=== PATIENT | male | born 1960 | race Caucasian/White ===

== ENCOUNTER 2023-11-15 10:50 | Emergency (ER) | payer BC, SELFPAY ==
[2023-11-15 10:54] VITALS: BP 128/75; PULSE 50; RESP 18; TEMP 36.3; O2SAT 97; BMI 27.2
[2023-11-15 11:51] LABS: Basophils Absolute Auto 0.02 K/uL (0.00-0.30); Basophils Percent Auto 0.4 % (0.0-3.0); Eosinophils Absolute Auto 0.11 K/uL (0.00-0.50); Hematocrit 44.9 % (37.0-53.0); Hemoglobin* 14.6 gm/dL (13.5-17.5); Immature Granulocytes Abs Auto 0.01 K/uL (0.00-0.30); Immature Granulocytes Pct Auto 0.2 %; Lymphocytes Absolute Auto 1.63 K/uL (0.90-2.90); Lymphocytes Percent Auto 29.9 % (20-44); Mean Corpuscular HGB Conc 33 gm/dL (32-36); Mean Corpuscular Hemoglobin 30 pg (26-34); Mean Corpuscular Volume 91 fL (80-100); Monocytes Percent Auto 13.2 % (0.0-11.0); Neutrophils Absolute Auto 2.97 K/uL (1.7-7.0); Neutrophils Percent Auto 54.3 % (42.0-72.0); Platelet Count* 187 K/uL (140-440); RDW Coefficient of Variation % 13.3 % (11.5-15.5); Red Blood Count 4.94 m/uL (4.30-5.90); White Blood Count* 5.46 K/uL (4.50-11.00)
[2023-11-15 11:53] LABS: Slide Review Reflex No
[2023-11-15 12:06] LABS: Troponin, Point-of-Care* 0.01 ng/ml (0.01-0.04)
[2023-11-15 12:11] LABS: Chloride* 104 mmol/L (96-114); Sodium* 137 mmol/L (135-149)
[2023-11-15 12:12] LABS: Potassium* 4.2 mmol/L (3.6-5.1)
[2023-11-15 12:14] LABS: Anion Gap 7 mEq/L (7-15); Carbon Dioxide* 26 mmol/L (20-32); Creatinine* 0.9 mg/dL (0.5-1.5); Est. Creatinine Clearance* 82.62; Estimated Glomerular Filt Rate 97 ml/min
[2023-11-15 12:15] LABS: Blood Urea Nitrogen* 15 mg/dL (7-30); Glucose* 99 mg/dL (60-115)
[2023-11-15 12:16] VITALS: PULSE 50
--- NOTE | 2023-11-15 12:21 | ED_ITS ---
HPI - Arrhythmia/Palpitations General Chief Complaint: Arrhythmia/Palpitations Stated Complaint: irregular heartbeat Time Seen by Provider: 11/15/23 11:01 History of Present Illness HPI narrative: This 63-year-old male comes in reporting palpitations on and off over the past 10 days. He states that he does occasionally feel some lightheadedness but has not had any chest pain, shortness of breath, nausea, vomiting, or diaphoresis. He does not report any exercise intolerance. He does state that he has a 45 year history of smoking but quit last year. He does not have any other cardiac risk factors. Related Data Home Medications ?Medication ?Instructions ?Recorded ?Confirmed No Known Home Medications 11/15/23 11/15/23 Allergies Allergy/AdvReac Type Severity Reaction Status Date / Time No Known Drug Allergies Allergy Verified 11/15/23 10:57 Review of Systems Status of ROS: Reports: 10 or more systems reviewed and unremarkable except as noted in History and below Narrative: Constitutional: No fevers, no weight gain or loss. Eyes: No discharge. No vision changes. HENT: No congestion, no sore throat, no ear pain. Cardiovascular: No chest pain. Palpitations as described above. Respiratory: No shortness of breath, no wheezes, no cough. Gastrointestinal: No abdominal pain, no vomiting, no diarrhea. Genitourinary: No dysuria, no hematuria. Musculoskeletal: Normal range of motion. Skin: No rashes, no pruritis. Neurological: No dizziness, weakness, sensory change, speech change. Endo/Heme/Allergies: No bruising or bleeding. No polydipsia. Pysch: no suicidality, no anxiety, no insomnia. All other systems reviewed and are negative. PFSH PFS Social History Smoking Status: Former smoker How often do you have a drink containing alcohol: 2-3 times a week AUDIT-C Alcohol total score: 3 Non-prescribed substance use: denies use Exam Narrative: Exam Narrative: Constitutional: Well-developed, well-nourished, no acute distress. HEENT: Normocephalic, atraumatic. Neck: Normal range of motion. Nontender. Supple. Heart: Regular. No murmurs. Normal rate. Intact distal pulses. Lungs: Clear to auscultation. No chest discomfort. No wheezes, rhonchi, or rales. Abdomen: Normal bowel sounds. Nontender. No rebound tenderness. Genitalia: Deferred. Back: No midline tenderness. Normal range of motion. Extremities: Normal range of motion. No injury. Skin: Intact. No rash. Warm. No erythema or pallor. Neurologic: No altered sensation. No weakness. Alert and oriented. Psychiatric: No suicidality. No anxiety or depression. No insomnia. Nursing notes and vitals signs are reviewed. Const: Vital Signs, click to edit/add: Vital Signs - 24 hr 11/15/23 10:54 11/15/23 12:16 Temperature 97.3 F L Pulse Rate [Pulse Oximeter] 50 L 50 L Respiratory Rate 18 Blood Pressure [Ri t Upper Arm] 128/75 Pulse Oximetry 97 Oxygen Delivery Me thod Room Air Course Vital Signs Vital signs: Initial Vital Signs Temperature 97.3 F L 11/15/23 10:54 Temperature Source Temporal Artery Scan 11/15/23 10:54 Pulse Rate 50 L 11/15/23 10:54 Respiratory Rate 18 11/15/23 10:54 Blood Pressure 128/75 11/15/23 10:54 Blood Pressure Mean 92 11/15/23 10:54 Blood Pressure Position Supine 11/15/23 10:54 Pulse Oximetry 97 11/15/23 10:54 Oxygen Delivery Method Room Air 11/15/23 10:54 Vital Signs Temperature 97.3 F L 11/15/23 10:54 Pulse Rate 50 L 11/15/23 10:54 Respiratory Rate 18 11/15/23 10:54 Blood Pressure 128/75 11/15/23 10:54 Pulse Oximetry 97 11/15/23 10:54 Oxygen Delivery Method Room Air 11/15/23 10:54 Temperature 97.3 F L 11/15/23 10:54 Pulse Rate 50 L 11/15/23 12:16 Respiratory Rate 18 11/15/23 10:54 Blood Pressure 128/75 11/15/23 10:54 Pulse Oximetry 97 11/15/23 10:54 Oxygen Delivery Method Room Air 11/15/23 10:54 MDM - Arrhythmia/Palpitations MDM Narrative Medical decision making narrative: This patient is not feeling any palpitations currently. He was observed on the monitor an EKG is obtained. I did see 1 premature atrial contraction. Labs are acquired and these returned with reassuring findings. I did recommend a Zio patch monitor to better assess what heart rhythm he may be encountering. The patient considered this but declined it. I recommended then that he follow-up with his primary physician and also consider a stress test. Lab Data Labs: Lab Results 11/15/23 11/15/23 Range/Units 11:33 11:44 WBC 5.46 (4.50-11.00) K/uL RBC 4.94 (4.30-5.90) m/uL Hgb 14.6 (13.5-17.5) gm/dL Hct 44.9 (37.0-53.0) % MCV 91 (80-100) fL MCH 30 (26-34) pg MCHC 33 (32-36) gm/dL RDW Coeff of David 13.3 (11.5-15.5) % Plt Count 187 (140-440) K/uL Neut % (Auto) 54.3 (42.0-72.0) % Lymph % (Auto) 29.9 (20-44) % Vigo % (Auto) 13.2 H (0.0-11.0) % Eos % (Auto) 2.0 (0.0-7.0) % Baso % (Auto) 0.4 (0.0-3.0) % Neut # (Auto) 2.97 (1.7-7.0) K/uL Lymph # (Auto) 1.63 (0.90-2.90) K/uL Vigo # (Auto) 0.70 (0.00-0.90) K/UL Eos # (Auto) 0.11 (0.00-0.50) K/uL Baso # (Auto) 0.02 (0.00-0.30) K/uL Abs Immat Gran (auto) 0.01 (0.00-0.30) K/uL Imm/Tot Granulo (auto) 0.2 % Sodium 137 (135-149) mmol/L Potassium 4.2 (3.6-5.1) mmol/L Chloride 104 (96-114) mmol/L Carbon Dioxide 26 (20-32) mmol/L Anion Gap 7 (7-15) mEq/L BUN 15 (7-30) mg/dL Creatinine 0.9 (0.5-1.5) mg/dL Estimated Creat Clear 82.62 Estimated GFR 97 ml/min Glucose 99 (60-115) mg/dL Calcium 9.0 (8.4-10.6) mg/dL Magnesium 2.0 (1.5-2.6) mg/dL POC Troponin I 0.01 (0.01-0.04) ng/ml ECG Data Attestation: I personally reviewed and interpreted this ECG as follows: Interpretation: Normal sinus rhythm. Rate is 52 beats per minute. There are no ST or T-wave abnormalities. Discharge Plan Discharge Clinical Impression: Palpitations Patient Disposition: Home, Self-Care Condition: Stable Additional Instructions: Continue current plans. Follow up with primary physician or return if symptoms are recurrent or worsening. Prescriptions: No Action No Known Home Medications Follow Up/Referrals: Jonas Malone MD [Primary Care Provider] - Stand Alone Forms: [employer] Info Instructions
== END 2023-11-15 12:42 | disposition home or self-care (01) ==
PROVIDERS: Emergency Provider Emergency Medicine Emergency Medical Services; PCP Family Medicine
DX: R00.2 Palpitations (principal)
CPT/HCPCS: 36415; 80048; 83735; 84484; 85025; 93005; 99284

== ENCOUNTER 2024-06-15 06:28 | Outpatient (CLI) | payer BC, SELFPAY ==
--- NOTE | 2024-06-15 07:49 | P.ANES_ITS ---
Anesthesia Charges Start Date/Time Anesthesia Start Date: 06/15/24 Anesthesia Start Time: 07:21 Stop Date/Time Anesthesia Stop Date: 06/15/24 Anesthesia Stop Time: 07:45 Coding CPT Codes CPT Codes: ANES UPR GI NDSC PX NOS - 14240 ([id number]) P1 - NORMAL HEALTHY PATIENT, QX - DRIVER GUARD ZORAIDA W/ MED DIRECTION, QK - FIRE SPRINKLER FITTER 2-4 CNCRNT ANES PROC
--- NOTE | 2024-06-15 07:49 | W.ANESCHARGE ---
Anesthesia Charges Start Date/Time Anesthesia Start Date: 06/15/24 Anesthesia Start Time: 07:21 Stop Date/Time Anesthesia Stop Date: 06/15/24 Anesthesia Stop Time: 07:45 Coding CPT Codes CPT Codes: ANES UPR GI NDSC PX NOS - 49802 ([id number]) P1 - NORMAL HEALTHY PATIENT, QX - MANAGER CAMP ZORAIDA W/ MED DIRECTION, QK - FOUNTAIN OPERATOR 2-4 CNCRNT ANES PROC
--- NOTE | 2024-06-15 07:58 | P.ANES_ITS ---
Anesthesia Charges Start Date/Time Anesthesia Start Date: 06/15/24 Anesthesia Start Time: 07:21 Stop Date/Time Anesthesia Stop Date: 06/15/24 Anesthesia Stop Time: 07:45 Coding CPT Codes CPT Codes: ANES UPR GI NDSC PX NOS - 44995 ([id number]) P1 - NORMAL HEALTHY PATIENT, QK - HEALTH CARE SANITARY TECHNICIAN 2-4 CNCRNT ANES PROC, QX - REFUELING RAMP SUPERVISOR SVDionne W/ MED DIRECTION
--- NOTE | 2024-06-15 07:58 | W.ANESCHARGE ---
Anesthesia Charges Start Date/Time Anesthesia Start Date: 06/15/24 Anesthesia Start Time: 07:21 Stop Date/Time Anesthesia Stop Date: 06/15/24 Anesthesia Stop Time: 07:45 Coding CPT Codes CPT Codes: ANES UPR GI NDSC PX NOS - 28189 ([id number]) P1 - NORMAL HEALTHY PATIENT, QK - HEATER HELPER FORGE 2-4 CNCRNT ANES PROC, QX - ENGINEERING CONSULTANT SVDionne W/ MED DIRECTION
== END 2024-06-15 06:29 | disposition home or self-care (01) ==
LOC: OP CLINIC 06:30
PROVIDERS: PCP Family Medicine; Visit Provider Internal Medicine Gastroenterology
DX: R10.13 Epigastric pain (principal); K21.00 Gastro-esophageal reflux disease with esophagitis, without bleeding; K22.89 Other specified disease of esophagus; K31.89 Other diseases of stomach and duodenum
CPT/HCPCS: 00731; 43239; 88305; J2704; J3490

== ENCOUNTER 2024-08-09 13:55 | Outpatient (CLI) | payer BC, SELFPAY ==
--- OUTSIDE RECORDS SUMMARY | 2024-07-19 14:00 | XMS_ITS | Encounter Summary ---
Author Organization [facility] Address [address] [place] [address] Care Team Providers Care Atomic Physics Teacher Name Role Phone Unavailable Primary Care Provider Unavailabl e Reason for Visit * Reason Comments Rib Injury Left sided rib pain since early March 12 * Appointment Request (Routine) - Closed Specialty Diagnoses / Procedures Referred By Melany t Referred To Contact Family Medicine Referral ID Status Reason Start Date Expiration Date Visits Re quested Visits Authorized [id number] Closed 07/19/2024 10/19/2025 1 1 Encounter Details Date Type Department Care Team (Late st Contact Info) Description 07/19/2024 2:00 PM CDT Comprehensive Visit Department of Family Medicine, [facility], in [place], [place] [address] [place] [phone] Nancy Pollock APRN, C.N.P., D.N.P. [address] [phone] General Medical Examination Adult (Primary Dx); Intercostal Pain; Curvature Spine Social History Tobacco Use Types Packs/Day Years Used Date Smoking Tobacco: Every Day Cigarettes Cigars Smokeless Tobacco: Never Tobacco Cessation:Ready to Q uit: Not Asked; Counseling Given: Not Answered Alcohol Use Standard Drinks/Week Comments Yes 2 (1 standard drink = 0.6 oz pur e alcohol) occassional [facility] Utilities Answer Date Recorded In the past 12 months has e electric, gas, oil, or water company threatened to shut off services in your home? No 07/19/2024 Hunger Vital Sign Answer Date Recorded Within the past 12 months, y ou worried that your food would run out before you got the money to buy more. Never true 07/20/19 25 Within the past 12 months, t he food you bought just didn't last and you didn't have money to get more. Never true 07/19/2024 PRAPARE - Transportation Answer Date Re corded In the past 12 months, has l ack of transportation kept you from medical appointments or from getting medications? No 04/2024 In the past 12 months, has l ack of transportation kept you from meetings, work, or from getting things needed for daily living? No 07/19/2024 Housing Stability Answer Date Recorded What is your living situation today? I have a [facility] place to live 07/19/2024 Sex and Gender Information Value Date Recorded Sex Assigned at Male 07/19/2024 1:46 PM CDT Legal Sex Male 11:06 AM CDT Gender Identity Male 07/19/2024 1:46 PM CDT Sexual Orientation Straight 07/19/2024 1: 46 PM CDT documented as of this encounter Last Filed Vital Signs Vital Sign Reading Time Taken Comments Blood Pressure 120/74 07/19/2024 1:52 PM CDT average Pulse 94 07/19/2024 1:52 PM CDT Temperature 35.7 C (96.3 F) 07/19/2024 1:52 PM CDT Respiratory Rate 16 07/19/2024 1:52 PM CDT Oxygen Saturation - - Inhaled Oxygen Concentration - - Weight 87.5 kg (192 lb 14.4 oz) 07/19/2024 1:52 PM CDT Height 179.7 cm (5' 10.75) 07/19/2024 1:52 PM CDT with shoes on Body Mass Index 27.1 07/19/2024 1:52 PM CDT documented in this encounter Progress Notes * Jay Jay-Nancy Hernandez APRN, C.N.P., D.N.P. - 07/19/2024 2:00 PM CDT DATE OF VISIT: 07/19/2024 SUBJECTIVE CHIEF COMPLAINT / REASON FOR VISIT Trace Castellanos is a 63 y.o. male who presents for evaluation of Rib Injury (Left sided rib pain sinceearly March 12). The patient verbally consented to an audio recording of their visit to assist with the completion of documentation. History of Present Illness Trace Castellanos is a 63 year old male who presents with left-sided rib pain. He is new to [facility]. He has never establish care with the [place] [facility] previously and there some records needing release of information to be transferred over. He reports he has been experiencing constant left lower-sided rib pain since February, which sometimes worsens. The pain occurs both at rest and during physical activity. He previously works as a armed guard and retired a month ago. No injuries or accidents explain the onset of the pain. Per records March 17, 2024 visit differentials included costochondritis, pleurisy, reflux or gastritis. EKG obtained to rule out ischemic process and was within normal limit, chest x-ray was also normal. Multiple evaluations, 06/21/2024 CT of abdomen and pelvis within normal limit, lung screening CT, and chest x-ray within normal limit. He has undergone an upper endoscopy and colonoscopy, has an upcoming appointment with the [facility]. The pain can be reproduced by touching the affected area. In addition Trace notes a change in posture with a concave area and a bulge on the left side, noticed two weeks ago. He uses a pillow under his right side while sleeping due to discomfort. He denies history of scoliosis, kyphosis, lordosis or any spine issues. He has a history of tobacco use but quit a couple months ago. He worked as a armed guard, which involved moderate physical activity but not heavy lifting. Retired a month ago. The pain does not worsen with stretching exercises. He experiences bowel irregularity, including constipation, which he associates with left-sided abdominal discomfort. He has experienced intermittent heartburn, which he distinguishes from his currentrib pain. OBJECTIVE VITAL SIGNS BP 120/74 (BP Location: Left arm, Patient Position: Sitting, Cuff Size: Regular) Comment: average Comment (Cuff Size): long Pulse 94 Temp (!) 35.7 ??C (Temporal) Resp 16 Ht 179.7 cm Comment: with shoes on Wt 87.5 kg BMI 27.10 kg/m?? Physical Exam Constitutional Appearance: Normal appearance. Cardiovascular Rate and Rhythm: Normal rate and regular rhythm. Pulmonary Effort: Pulmonary effort is normal. Breath sounds: Normal breath sounds. Musculoskeletal Lumbar back: Scoliosis present. Neurological Mental Status: He is alert. ASSESSMENT/ PLAN General Medical Examination Adult Intercostal Pain Patient presents for evaluation of ongoing abdominal pain however the pain is not in the abdominal region but in the lower left rib pain since February. He reports also noticing a spinal curvature 2 weeks ago. He states he has been seen multiple times but has not been assessed/full visual of spine with shirt off- even though he states spinal curvature 1st noted 2 weeks ago. Upon physical examination patient reports tenderness with palpation of left lower rib 10-11th rib. Suspect intercostal muscle strain. Also noted is curving of the spine to the right-levoscoliosis?. Patient denies history of spinal injury or history of scoliosis. - Consider refer to orthopedic provider for further evaluation. - Review imaging and previous notes once available. - Patient okay to try meloxicam for intercostal discomfort, to take with food and avoid use of any other NSAIDs while taking meloxicam. We will check a BMP and CBC prior to sending prescriptions - We will get an x-ray of spine-? Scoliosis Orders: Basic Metabolic Panel; Future CBC with Differential, Blood; Future meloxicam (Mobic) 15 mg tablet; Take 1 tablet (15 mg total) by mouth daily for 10 days. All questions answered and patient voiced understanding and agreed with the plan. documented in this encounter Plan of Treatment Not on file documented as of this encounter Results * (ABNORMAL) CBC with Differential, Blood (07/19/2024 2:59 PM CDT) Hemoglobin 13.8 13.2 - 16.6 g/dL 07/19/2024 5:50 PM CDT [facility] Hematocrit 42.4 38.3 - 48.6 % 07/19/2024 5:50 PM CDT [facility] Erythrocytes 4.62 4.35 - 5.65 x10(12)/L 07/19/2024 5:50 PM CDT [facility] MCV 91.8 78.2 - 97.9 fL 07/19/2024 5:50 PM CDT [facility] RBC Distrib Width 13.3 11.8 - 14.5 % 07/19/2024 5:50 PM CDT [facility] Platelet Count 278 135 - 317 x10(9)/L 07/19/2024 5:50 PM CDT [facility] Leukocytes 9.3 3.4 - 9.6 x10(9)/L 07/19/2024 5:50 PM CDT [facility] Neutrophils 5.99 1.56 - 6.45 x10(9)/L 07/19/2024 5:50 PM CDT [facility] Lymphocytes 2.18 0.95 - 3.07 x10(9)/L 07/19/2024 5:50 PM CDT [facility] Monocytes 0.97(H) 0.26 - 0.81 x10(9)/L 07/19/2024 5:50 PM CDT [facility] Eosinophils 0.12 0.03 - 0.48 x10(9)/L 07/19/2024 5:50 PM CDT [facility] Basophils 0.04 0.01 - 0.08 x10(9)/L 07/19/2024 5:50 PM CDT [facility] Blood (Blood, Venous) 07/19/2024 2:59 PM CDT 07/19/2024 5:45 PM CDT us Nancy Pollock APRN, C.N.P., D.N.P. LA B BLOOD ADD-ON Final Result [facility] [address] [place] [address], [facility] [place] [address] [place] [address] * Basic Metabolic Panel (07/19/2024 2:59 PM CDT) Potassium, P 4.4 3.6 - 5.2 mmol/L 07/19/2024 6:09 PM CDT [facility] Sodium, P 139 135 - 145 mmol/L 07/19/2024 6:09 PM CDT [facility] Chloride, P 103 98 - 107 mmol/L 07/19/2024 6:09 PM CDT [facility] Bicarbonate, P 28 22 - 29 mmol/L 07/19/2024 6:10 PM CDT [facility] Anion Gap, P 8 7 - 15 07/19/2024 6:10 PM CDT [facility] BUN (Blood Urea Nitrogen), P 20 8 - 24 mg/dL 07/19/2024 6:10 PM CDT [facility] Creatinine 1.05 0.74 - 1.35 mg/dL 07/19/2024 6:10 PM CDT [facility] Estimated GFR (eGFR) 81 >=60 mL/min/BSA 07/19/2024 6:10 PM CDT [facility]AT Comment: Estimated GFR calculated using the 2020 CKD_EPI creatinine equation. Calcium, Total, P 9.5 8.8 - 10.2 mg/dL 07/19/2024 6:10 PM CDT [facility] Glucose, P 118 70 - 140 mg/dL 07/19/2024 6:10 PM CDT [facility] Blood (Blood, Venous) 07/19/2024 2:59 PM CDT 07/19/2024 5:46 PM CDT us Nancy Pollock APRN, C.N.P., D.N.P. LA B BLOOD ADD-ON Final Result [facility] [address] [place] [address], [place] [facility] [place] [address] [place] [address] documented in this encounter Visit Diagnoses Diagnosis General Medical Examination Adult- Primary Intercostal Pain Curvature Spine documented in this encounter
--- OUTSIDE RECORDS SUMMARY | 2024-07-19 14:47 | XMS_ITS | Encounter Summary ---
Author Organization [facility] Address [address] [place] [address] Care Team Providers Care Cpr Instructor Name Role Phone Unavailable [facility] Encounter Details Date Type Department Care Team (Late st Contact Info) Description 07/19/2024 2:47 PM CDT - 07/19/2024 11:59 PM CDT Hospital Encounter Department of Laboratory Medicine in [place] [address] [place] [phone] Jay JayNancy Hernandez APRN, C.N.P., D.N.P. [address] [phone] General Medical Examination Adult Discharge Disposition: Home or Self Care Social History Tobacco Use Types Packs/Day Years Used Date Smoking Tobacco: Every Day Cigarettes Cigars Smokeless Tobacco: Never Alcohol Use Standard Drinks/Week Comments Yes 2 (1 standard drink = 0.6 oz pur e alcohol) occassional [facility] Utilities Answer Date Recorded In the past 12 months has th e [employer], gas, oil, or water [employer] threatened to shut off services in your [...] your living situation today? I have a [facility] place to live 07/19/2024 Sex and Gender Information Value Date Recorded Sex Assigned at Male 07/19/2024 1:46 PM CDT Legal Sex Male 11:06 AM CDT Gender Identity Male 07/19/2024 1:46 PM CDT Sexual Orientation Straight 07/19/2024 1: 46 PM CDT documented as of this encounter Medications at Time of Discharge meloxicam (Mobic) 15 mg tabletIndications :Intercostal Pain Take 1 tablet (15 mg total) by mouth daily for 10 days. 10 tablet 2024 omeprazole (PriLOSEC) [address] capsule daily before morning meal. 06/23/2024 polyethylene glycol (Miralax) 17 gram/dose oral powder Take 17 g by mouth daily. Dissolve each 17 g dose in 240 mL (8 ounces) of beverage. documented as of this encounter Plan of Treatment Not on file documented as of this encounter Procedures Procedure Name Priority Date/Time Associated Diagnosis Comments CBC WITH DIFFERENTIAL, B Routine 07/19/2024 2:59 PM CDT General Medical Examination Adult BASIC METABOLIC PANEL, S/P Routine 07/19/2024 2:59 PM CDT General Medical Examination Adult documented in this encounter Results * (ABNORMAL) CBC with [...] D.N.P. LA B BLOOD ADD-ON Final Result [facility] [address] [place] [address], [facility] [place] [address] [place] [address] * Basic Metabolic Panel (07/19/2024 2:59 PM [...] D.N.P. LA B BLOOD ADD-ON Final Result [facility] [address], [place] [address], [facility] [place] [address] [place] [address] documented in this encounter Visit Diagnoses Diagnosis General Medical Examination Adult documented in this encounter
--- OUTSIDE RECORDS SUMMARY | 2024-07-29 12:55 | XMS_ITS | Encounter Summary ---
Author Organization [facility] Address [address] [place] [address] Care Team Providers Care Electrical Engineering Technician Name Role Phone Unavailable Primary Care Provider Unavailabl e Reason for Visit * Outpatient (Routine) - Closed Specialty Diagnoses / Procedures Referred By Melany cornejo Referred To Contact Diagnoses Curvature Spine Procedures DX Entire Spine Scoliosis 1 View DX Thoracolumbar Spine Scoliosis Anterior Posterior 1 View Nancy Pollock APRN, C.N.P., D.N.P. [address] [phone] Phone: tel: fax: [facility] Region Referral ID Status Reason Start Date Expiration Date Visits Re quested Visits Authorized [id number] Closed 2024 10/20/2025 1 1 Encounter Details Date Type Department Care Team (Late st Contact Info) Description 07/29/2024 12:55 PM CDT - 07/29/2024 11:59 PM CDT Hospital Encounter Department of Radiology in [place], [place] [address] [place] [phone] Nancy Pollock APRN, C.N.P., D.N.P. [address] [place] [phone] Curvature Spine Discharge Disposition: Home or Self Care Social History Tobacco Use Types Packs/Day Years Used Date Smoking Tobacco: Every Day Cigarettes Cigars Smokeless Tobacco: Never Alcohol Use Standard Drinks/Week Comments Yes 2 (1 standard drink = 0.6 oz pur e alcohol) occassional [facility] Utilities Answer Date Recorded In the [...] your living situation today? I have a [facility] place to live 07/19/2024 Sex and Gender [...]
[2024-08-09 13:59] VITALS: BP 110/80; PULSE 97; RESP 16; O2SAT 97
--- OUTSIDE RECORDS SUMMARY | 2024-08-09 14:32 | XMS_ITS | Clinical Summary ---
Author Organization [facility] Address [address] [place] [address] Care Team Providers Care Pediatric Registered Nurse Name Role Phone Unavailable Primary Care Provider Unavailabl e Source Comments Patient records contain information from all sites at [facility]. For routine questions regarding patient records, call [phone] during business hours, M-F 8:00 AM - 5:00 PM Central Time. Record requests for emergency care only can be directed to [phone] at any time.[facility] Allergies No known active allergies Medications omeprazole (PriLOSEC) [address] capsule daily before morning meal. 06/23/2024 Active polyethylene glycol (Miralax) 17 gram/dose oral powder Take 17 g by mouth daily. Dissolve each 17 g dose in 240 mL (8 ounces) of beverage. Active meloxicam (Mobic) 15 mg tabletIndicatio ns:Intercostal Pain Take 1 tablet (15 mg total) by mouth daily for 10 days. 10 tablet 2024 Active Encounters Date Type Department Care Team Description 07/29/2024 12:55 PM CDT - 07/29/2024 11:59 PM CDT Hospital Encounter Department of Radiology in [place], [place] [address] [place] [phone] Jay JayNancy Hernandez APRN, C.N.P., D.N.P. Curvature Spine Discharge Disposition: Home or Self Care 2024 Results Follow-Up Department of Family Medicine, [facility], in [place], [place] [address] [place] [address] Nancy Pollock APRN, C.N.P., D.N.P. Basic Metabolic Panel, CBC with Differential, Blood 2024 Clinical Communication Department of [facility], [facility], in [address] [phone] Nancy Pollock APRN, C.N.P., D.N.P. Follow-up 07/19/2024 2:47 PM CDT - 07/19/2024 11:59 PM CDT Hospital Encounter Department of Laboratory Medicine in [address] [place] [address] Nancy Pollock APRN, C.N.P., D.N.P. General Medical Examination Adult Discharge Disposition: Home or Self Care 07/19/2024 2:00 PM CDT Comprehensive Visit Department of [facility], [facility], in [address] [phone] Nancy Pollock APRN, C.N.P., D.N.P. General Medical Examination Adult (Primary Dx); Intercostal Pain; Curvature Spine from Last 3 Months Immunizations Immunization Administration Dates Next Due HepA / HepB 02/21/2008 Influenza, Injectable, Mdck, Preservative Free, Quadrivalent 01/03/2024,12/25/2022,11/27/2021,2020 Measles 06/25/1976 RZV (SHINGRIX) 06/18/2023,01/27/2023 SARS-COV-2 (COVID-19) - MODERNA(Discontinued) 12/24/2020,03/13/2020 Tdap 05/03/2024,07/05/2013 influenza vaccine quad (FLUZONE/FLUARIX) (6 months and older)(PF) 11/07/2019,01/24/2019,10/28/2017 Social History Tobacco Use Types Packs/Day Years Used Date Smoking Tobacco: Every Day Cigarettes Cigars Smokeless Tobacco: Never Tobacco Cessation:Ready to Q uit: Not Asked; Counseling Given: Not Answered Alcohol Use Standard Drinks/Week Comments Yes 2 (1 standard drink = 0.6 oz pur e alcohol) occassional [facility] Utilities Answer Date Recorded In the past 12 months has th e electric, gas, oil, or water company [...] your living situation today? I have a [facility] place to live 07/19/2024 Sex and Gender Information Value Date Recorded Sex Assigned at Male 07/19/2024 1:46 PM CDT Legal Sex Male 11:06 AM CDT Gender Identity Male 07/19/2024 1:46 PM CDT Sexual Orientation Straight 07/19/2024 1: 46 PM CDT Last Filed Vital Signs Vital Sign Reading [...] Mass Index 27.1 07/19/2024 1:52 PM CDT Plan of Treatment Health Maintenance Due Date Last Done Comments CT Colonography 1962 Cologuard 1962 FIT 1962 HIV Screening 1962 Hepatitis C Screening 1962 Tobacco Cessation counseling 1962 Pneumococcal vaccine (50+ years) (1 of 2 - PCV) 1981 Hepatitis B Vaccines (2 of 3 - Hep B Twinrix 3-dose series) 03/20/2008 02/21/2008 Depression Screening (Annual PHQ-2) 02/17/2024 Fasting Glucose for Diabetes Screening 2027 07/19/2024, 05/03/2024, 01/27/2023, Additional history exists Lipid (Cholesterol) Screening 01/28/2028 01/27/2023, 06/25/2020 DTaP,Tdap,and Td Vaccines (3 - Td or Tdap) 05/03/2034 05/03/2024, 07/05/2013 Colonoscopy 07/13/2034 07/13/2024 Colorectal Cancer Screening 07/13/2034 Zoster Vaccines Completed 06/18/2023, 01/27/2023 COVID-19 Vaccine Completed 01/03/2024, 10/2022, 11/27/2021, Additional history exists Influenza Vaccine Completed 01/03/2024, , 11/27/2021, Additional history exists IPV Vaccines Aged Out No longer eligi ble based on patient's age to complete this topic Procedures Procedure Name Priority Date/Time Associated Diagnosis Comments DX ENTIRE SPINE SCOLIOSIS 1 VIEW RAD - Routine (most inpatients and all outpatients) 07/29/2024 1:07 PM CDT Curvature Spine CBC WITH DIFFERENTIAL, B Routine 07/19/2024 2:59 PM CDT General Medical Examination Adult BASIC METABOLIC PANEL, S/P Routine 07/19/2024 2:59 PM CDT General Medical Examination Adult from Last 3 Months Results * DX Entire Spine Scoliosis 1 [...] D.N.P. IMG DIAGNOSTIC IMAGING PROCEDURES Final Result * (ABNORMAL) CBC with Differential, Blood (07/19/2024 [...] 2:59 PM CDT 07/19/2024 5:45 PM CDT Nancy Pollock APRN, C.N.P., D.N.P. LA B BLOOD ADD-ON Final Result [facility] [address] [place] [id number], [place] [employer] [facility] in [place] [address] [place] [id number] * Basic Metabolic Panel (07/19/2024 2:59 PM [...] D.N.P. LA B BLOOD ADD-ON Final Result [facility] [address] [place] [address], [place] [employer] [facility] in [place] [address] [place] [phone] from Last 3 Months Insurance [facility]
--- OUTSIDE RECORDS SUMMARY | 2024-08-09 14:32 | XMS_ITS | Encounter Summary ---
Author Organization [facility] Address [address] [place] [address] Care Team Providers Care Collar Baster Name Role Phone Unavailable Primary Care Provider Unavailabl e Encounter Details Date Type Department Care Team (Late st Contact Info) Description 2024 Results Follow-Up Department of Family Medicine, [facility], in [place], [place] [address] [place] [address] Jay JayNancy Hernandez APRN, C.N.P., D.N.P. [address] [phone] Basic Metabolic Panel, CBC with Differential, Blood Social History Tobacco Use Types Packs/Day Years Used Date Smoking Tobacco: Every Day Cigarettes Cigars Smokeless Tobacco: Never Alcohol Use Standard Drinks/Week Comments Yes 2 (1 standard drink = 0.6 oz pur e alcohol) occassional [facility] Utilities Answer Date Recorded In the past 12 months has e [employer], gas, oil, or water [employer] threatened to shut off services in your [...] your living situation today? I have a [facility] place to live 07/19/2024 Sex and Gender Information Value Date Recorded Sex Assigned at Male 07/19/2024 1:46 PM CDT Legal Sex Male 11:06 AM CDT Gender Identity Male 07/19/2024 1:46 PM CDT Sexual Orientation Straight 07/19/2024 1: 46 PM CDT documented as of this encounter Plan of Treatment Not on file documented as of this encounter Visit Diagnoses Not on filedocumented in this encounter
--- OUTSIDE RECORDS SUMMARY | 2024-08-09 14:32 | XMS_ITS | Clinical Summary ---
Author Organization [employer] [facility] Address [address] [place] [id number] Care Team Providers Care Concrete Block Mason Name Role Phone Anne Rueda DO Primary Care Provider Allergies No known active allergies Medications cyclobenzaprine 10 mg tabletIndication s:Postprandial epigastric pain,Abdominal pain, LUQ (left upper quadrant) Take 1 Tablet (10 mg) by mouth at bedtime if needed for Muscle Spasm. 30 Tablet 5 Active Additional Information Patient not taking.Reported on 08/08/2024 durable medical equipment (DME)Indications :Resorption atelectasis without respiratory distress syndrome (HC) Incentive spirometer 1 Each 5 Active omeprazole 20 mg Delayed-Release capsule 5 Active polyethylene glycoL 17 gram/scoop powderIndication s:Abdominal pain, epigastric,Chron ic constipation Mix 1 scoop (17 g) in liquid then take by mouth once daily. 1700 g 1 5 Active sennosides 8.6 mg tabletIndication s:Chronic constipation Take 1 Tablet (8.6 mg) by mouth two times daily. 180 Tablet 3 5 Active Additional Information Patient not taking.Reported on 08/08/2024 polyethylene glycol-electroly te 236-22.74-6.74 -5.86 gram suspensionIndica tions:Change in stool caliber Drink 2 liters (half the bottle) the day before the procedure and 2 liters (half the bottle) 6 hours prior to procedure. 4000 mL 5 Active Additional Information Patient not taking.Reported on 08/08/2024 Active Problems Problem Noted Date Diagnosed Date Prediabetes 03/17/2024 Mixed hyperlipidemia 03/17/2024 Tobacco dependence 06/25/2020 Routine adult health maintenance 08/24/2015 Overview (08/24/2015): Colonoscopy 08/2015 normal repeat in 10 years Urinary frequency 09/23/2013 Encounters Date Type Department Care Team Description 08/09/2024 [facility]phone [facility] [place] [address] Salazar Ricardo MD FYI 08/08/2024 7:50 AM CDT [facility] [address] [facility] [place] [address] Salazar Ricardo MD Musculoskeletal Problem (Consultation for LEFT Rib pain. DOO 02/2024) 08/08/2024 Travel 07/14/2024 Orders Only [facility] [address] [facility] [place] [address] Anne Rueda DO 1 scan: (1-Ord) [facility] 07/13/2024 11:49 AM CDT - 07/13/2024 11:59 PM CDT Hospital Encounter Edward Sandoval MD 07/13/2024 Lab Requisition [facility] [phone] Edward Sandoval MD 07/13/2024 Orders Only [address] [address] Edward Sandoval MD <No scans attached> 07/13/2024 Surgery [facility] [id number] [place] [address] [address] [place] [address] Edward Sandoval MD Colonoscopy 07/07/2024 7:40 AM CDT Office Visit [facility] [address] [place] [address] Anne Rueda DO Abdominal Pain (Just received the SIBO testing to his house yesterday - plans to take today - stopped taking the omeprazole - used miralax 4 times a day for 30 doses and stopped - hasn't had a BM since Thursday - thinks that while using he maybe had BM every other day but very irregular stools ) 07/07/2024 Telephone [facility] [address] [facility] [place] [address] Edward Sandoval MD colonoscopy RX / Case request 07/07/2024 Travel 06/21/2024 2:30 PM CDT Ancillary Procedure [facility] [address] [place] [address] 06/21/2024 12:25 PM CDT Office Visit [facility] [address] [place] [address] Anne Rueda DO Abdominal Pain/problem (Feels like his digestion is all messed up since being on the prilosec /Feels like if he doesn't eat he does not have the rib pain ) 06/21/2024 Travel 06/16/2024 Lab Requisition [facility] [phone] Edward Sandoval MD 06/15/2024 6:30 AM CDT Procedure Only [facility] [address] [place] [address] Edward Sandoval MD 05/24/2024 8:55 AM CDT Office Visit [facility] [address] [place] [address] Anne Rueda DO Pain (Following up on abdominal / rib pain - LEFT sided ) 05/24/2024 Telephone [facility] [address] [place] [address] Edward Sandoval MD Endoscopy 05/24/2024 Travel 05/10/2024 8:00 AM CDT Ancillary Procedure [address] [address] 05/10/2024 Travel from Last 3 Months Immunizations Immunization Administration Dates Next Due COVID-19 vaccine (Moderna 10 0mcg/0.5mL) CHASTITY ALMAGUER 12/24/2020,03/13/2020,02/16/2020 HepA-HepB (Twinrix) 02/21/2008 Influenza, CCIIV3 (Age >=6 MO) (Egg Free) 2023 Influenza, IIV4 11/07/2019,01/24/2019,10/28/2017 Influenza,CCIIV4 PRESERV FREE 12/25/2022, 022,02/12/2021 Measles 06/25/1976 Tdap 05/03/2024,07/05/2013 Zoster (Shingrix-RZV, recombinant) 06/18/2023,03/24/2023 Family History Medical History Relation Name Comments Dementia Father Good Health Mother Thyroid Disease Sister Relation Name Status Comments Father (Age 87) Dementia Mother Alive Sister Alive Social History Tobacco Use Types Packs/Day Years Used Date Smoking Tobacco: Former Cigarettes 1 44.4 0 07/17/1976 - 11/23/2020 Smokeless Tobacco: Never Tobacco Cessation:Counseling Given: Yes Alcohol Use Standard Drinks/Week Comments Yes 0 (1 standard drink = 0.6 oz pur e alcohol) occassional PHQ-2 Answer Date Recorded PHQ-2 TOTAL SCORE 1 05/03/2024 Social Connections Answer Date Recorded Do you often feel lonely or isolated from those around you? 0 11/25/2023 Financial Resource Strain Answer Date R ecorded Difficulty of Paying Living Expenses 3 11/25/2023 Difficulty of Paying Living Expenses Not on file 11/25/2023 Food Insecurity Answer Date Recorded Do you worry your food will run out before you are able to buy more? 1 11/25/2023 Transportation Needs Answer Date Record ed Does lack of transportation keep you from medica l appointments? 1 11/25/2023 Does lack of transportation keep you from work, meetings or getting things that you need? 1 11/25/2023 Housing Stability Answer Date Recorded What is your housing situation today? 1 11/25/2023 Utilities Answer Date Recorded Do you have trouble paying f or utilities (for example, heat, electricity, water, phone)? 1 11/25/2023 Sex and Gender Information Value Date Recorded Sex Assigned at Not on file Legal Sex Male 5:24 AM RETAIL RECEIVING CLERK Gender Identity Not on file Sexual Orientation Not on file Obstetrics History Last Filed Vital Signs Vital Sign Reading Time Taken Comments Blood Pressure 157/87 08/08/2024 7:57 AM CDT recheck BP Pulse 84 08/08/2024 7:54 AM CDT Temperature 36 C (96.8 F) 02/21/2021 10:50 AM RETAIL RECEIVING CLERK Respiratory Rate 18 02/21/2021 11:3 0 AM RETAIL RECEIVING CLERK Oxygen Saturation 99% 08/08/2024 7:5 4 AM CDT Inhaled Oxygen Concentration - - Weight 85.7 kg (188 lb 14.4 oz) 025 7:54 AM CDT Height 178 cm (5' 10.08) 05/03/2024 7: 56 AM CDT Body Mass Index 27.04 05/03/2024 7:56 AM CDT Plan of Treatment Upcoming Encounters Date Type Department Care Team (Late st Contact Info) Description 08/11/2024 9:00 AM CDT Office Visit [facility] [address] [place] [address] Edward Sandoval MD [address] [place] [address] Health Maintenance Due Date Last Done Comments Hepatitis B series for 19+ ( 2 of 3 - Hep B Twinrix 3-dose series) 03/20/2008 02/21/2008 Pneumococcal series for age 50+ (1 of 1 - PCV) 2012 BMI (ht and wt on same day) for age 18+ 05/03/2025 05/03/2024, 01/27/2023, 12/24/2020, Additional history exists Depression screening for age 12+ 05/03/2025 05/03/2024, 01/27/2023, 06/26/2020, Additional history exists Low Dose CT (for lung CA) ag e 50-80 05/10/2025 05/10/2024 Lipids for age 45-75 05/03/2029 05/03/2024, 01/27/2023, 06/25/2020, Additional history exists Tetanus booster 05/03/2034 05/03/2024, 07/05/2013 Colonoscopy through age 75 07/13/203407/13, 08/24/2015, 08/24/2015 RSV vaccine for adults or (1 - 1-dose 75+ series) 2037 HIV for age 15-65 Completed 01/27/2023 Hepatitis C screening for ag e 18-79 Completed 01/27/2023 Zoster (shingles) series for age 50+ Completed 06/18/2023, 01/27/2023 COVID-19 vaccine series Completed 01/03/20, 12/25/2022, 11/27/2021, Additional history exists Influenza Vaccine Completed 01/03/2024, , 11/27/2021, Additional history exists Tdap Completed 05/03/2024, 07/05/2013 Procedures Procedure Name Priority Date/Time Associated Diagnosis Comments COMP METABOLIC PANEL Routine 08/08/2024 9:04 AM CDT Rib pain on left side Pleural effusion on left C-REACTIVE PROTEIN Routine 08/08/2024 9:04 AM CDT Rib pain on left side Pleural effusion on left LAB TRACKING EVENT Routine 07/13/2024 1:15 PM CDT PATH TISSUE EXAM Routine 07/13/2024 1:13 PM CDT COLONOSCOPY DIAGNOSTIC DIEGO 12:00 AM CDT Abnormal stool caliber AMB CONSULT TO GASTROENTEROLOGY [facility] 06/23/2024 8:13 PM CDT Postprandial epigastric pain Abdominal pain, LUQ (left upper quadrant) CT ABDOMEN PELVIS W [place] 06/21/2024 1:38 PM CDT Postprandial epigastric pain Abdominal pain, LUQ (left upper quadrant) LAB TRACKING EVENT Routine 06/15/2024 7:30 AM CDT PATH TISSUE EXAM Routine 06/15/2024 7:30 AM CDT ESOPHAGOGASTRODUODENOSCOPY Routine 06/15 12:00 AM CDT Postprandial epigastric pain CT CHEST SCREENING LOW DOSE WO CONTRAST Routine 05/10/2024 8:09 AM CDT Tobacco use LIPID PANEL W REFLEX MEASURE D LDL Routine 05/03/2024 8:36 AM CDT Mixed hyperlipidemia ANTI HIV 1/2 Routine 01/27/2023 10:36 AM RETAIL RECEIVING CLERK Screening for HIV (human immunodeficiency virus) ANTI HCV Routine 01/27/2023 10:36 AM RETAIL RECEIVING CLERK Need for hepatitis C screening test SURGICAL PROCEDURE (TYPE PROCEDURE DESCRIPTION BELOW) Change in stool caliber from Last 3 Months or Most Recently Relevant to Health Maintenance Results * C-REACTIVE PROTEIN (08/08/2024 9:04 AM CDT) C-REACTIVE PROTEIN 6.6 <8.0 mg/L [facility] Blood BLOOD SPECIMEN / Unknown 08/08/2024 9:04 AM CDT 08/08/2024 9:05 AM CDT us Salazar Ricardo MD CHEMISTRY Final Res ult [facility] [address] [place] [address], [facility] [address] [place] [address] * (ABNORMAL) COMP METABOLIC PANEL (08/08/2024 9:04 AM CDT) GLUCOSE 101(H) 65 - 99 mg/dL [facility] Comment: Fasting reference interval For someone without known diabetes, a glucose value between 100 and 125 mg/dL is consistent with prediabetes and should be confirmed with a follow-up test. UREA NITROGEN (BUN) 17 7 - 25 mg/dL [facility] CREATININE 0.98 0.70 - 1.35 mg/dL [facility] EGFR 87 > OR = 60 mL/min/1. 73m2 [facility] BUN/CREATININE RATIO SEE NOTE: 6 22 (calc) [facility] Comment: Not Reported: BUN and Creatinine are within reference range. SODIUM 139 135 - 146 mmol/L [facility] POTASSIUM 5.2 3.5 - 5.3 mmol/L [facility] CHLORIDE 103 98 - 110 mmol/L [facility] CARBON DIOXIDE 28 20 - 32 mmol/L [facility] CALCIUM 9.7 8.6 - 10.3 mg/dL [facility] PROTEIN, TOTAL 6.9 6.1 - 8.1 g/dL [facility] ALBUMIN 4.2 3.6 - 5.1 g/dL [facility] GLOBULIN 2.7 1.9 - 3.7 g/dL (calc) [facility] ALBUMIN/GLOBULIN RATIO 1.6 1.0 - 2.5 (calc) [facility] BILIRUBIN, TOTAL 0.4 0.2 - 1.2 mg/dL [facility] ALKALINE PHOSPHATASE 103 35 - 144 U/L [facility] AST 16 10 - 35 U/L [facility] ALT 14 9 - 46 U/L [facility] Blood BLOOD SPECIMEN / Unknown 08/08/2024 9:04 AM CDT 08/08/2024 9:05 AM CDT Salazar Ricardo MD CHEMISTRY Final Res ult [facility] [address] [place] [address], [facility] [address] [place] [address] * LAB TRACKING EVENT (07/13/2024 1:15 PM CDT) Only the most recent of2 resultswithin the time period is included. Other (Other) Client Collect / Unknown 07/13/2024 1:15 PM CDT 07/13/2024 6:12 PM CDT Edward Snadoval MD LAB BILL ONLY Final Res ult [facility] [address] [place] [id number], * PATH TISSUE EXAM (07/13/2024 1:13 PM CDT) Only the most recent of2 resultswithin the time period is included. Case Report Pathology Report Case: [id number] Authorizing Provider: Edward Sandoval MD Collected: 07/13/2024 1313 Ordering Location: [facility] Received: 07/13/2024 1815 Pathologist: De Rueda MD Specimen: Rectal Biopsy 07/14/2024 4:00 PM CDT [facility] Final Diagnosis A) RECTUM, POLYPECTOMY: 1. Hyperplastic polyp 07/14/2024 4:[address] [facility] at 1600 CDT Clinical Information Mr. Castellanos is a 63 y.o. who presents with a change in stool caliber and hematochezia. Patient's last colonoscopy in August 2015. 07/14/2024 4:00 PM CDT [facility] Gross Description A) Received in formalin is a mancilla mucosal fragment measuring 2 mm in greatest dimension, which is entirely submitted in one cassette. It is labeled with the patient's name and designated rectal polyp. Jaye Jason 07/13/2024 6:42 PM 07/14/2024 4:[address] [facility] Microscopic Description The final diagnosis is based on microscopic examination of appropriate sections of all specimens. 07/14/2024 4:00 PM CDT [facility] Additional Information Interpreted at [facility] - [address], [place] [address] 07/14/2024 4:[address] [facility] Other (Rectal Biopsy) 07/13/2024 1:13 PM CDT 07/13/2024 6:15 PM CDT us Edward Sandoval MD PATHOLOGY/CYTOLOGY Final Result [facility] [address] [place] [address], [place] * COLONOSCOPY DIAGNOSTIC (07/13/2024 12:00 AM CDT) us Anne Rueda DO GI PROCEDURE ORD Final Result * CT ABDOMEN PELVIS W (06/21/2024 1:38 PM CDT) Anatomical Region Laterality Modality Abdomen, Pelvis, AORTA, LIVER, SPLEEN Computed Tomography 06/21/2024 5:19 PM CDT Narrative 06/21/2024 5:19 PM CDT For Patients: As a result of the Century Cures Act, medical imaging exams and procedure reports are released immediately into your electronic medical record. You may view this report before your referring provider. If you have questions, please contact your health care provider. Indication: Abdominal pain, LUQ (left upper quadrant Postprandial epigastric pain Technique: CT ABDOMEN PELVIS W Omnipaque 350 100 ML intravenous contrast Please note that all CT scans at this facility use dose modulation, iterative reconstruction, and/or weight-based dosing when appropriate to reduce radiation dose to as low as reasonably achievable. Comparison: None Findings: Linear subsegmental atelectasis is present within the left lower lobe. Trace amount of pleural fluid noted on the left. Adrenal glands are normal. Spleen is not enlarged. No hydronephrosis or solid renal mass. No renal stone. Liver is normal. Normal gallbladder. The pancreas is within normal limits. No hiatal hernia. Atherosclerotic changes. No aneurysm. No adenopathy. The stomach is not obstructed. Normal pyloric mucosa noted. The duodenum appears normal. Moderate stool is present within the mid and distal colon. Normal appendix. No small bowel obstruction. No acute inflammatory change. Degenerative changes are present particularly at L2- 3. Impression: No suspicious findings are present. Please note that all CT scans at this facility use dose modulation, iterative reconstruction, and/or weight-based dosing when appropriate to reduce radiation dose to as low as reasonably achievable. Dictated by Jonas Jurado MD @ 06/21/2024 5:19:46 PM (Electronically Signed) Procedure Note Jonas Jurado MD - 06/21/2024 For Patients: As a result of the Century Cures Act, medical imagingexams and procedure reports are released immediately into your electronicmedical record. You may view this report before your referring provider.If you have questions, please contact your health care provider. Indication: Abdominal pain, LUQ (left upper quadrant Postprandial epigastric pain Technique: CT ABDOMEN PELVIS W Omnipaque 350 100 ML intravenous contrast Please note that all CT scans at this facility use dose modulation,iterative reconstruction, and/or weight-based dosing when appropriate toreduce radiation dose to as low as reasonably achievable. Comparison: None Findings: Linear subsegmental atelectasis is present within the left lower lobe.Trace amount of pleural fluid noted on the left. Adrenal glands arenormal. Spleen is not enlarged. No hydronephrosis or solid renal mass. Norenal stone. Liver is normal. Normal gallbladder. The pancreas is withinnormal limits. No hiatal hernia. Atherosclerotic changes. No aneurysm. Noadenopathy. The stomach is not obstructed. Normal pyloric mucosa noted.The duodenum appears normal. Moderate stool is present within the mid anddistal colon. Normal appendix. No small bowel obstruction. No acuteinflammatory change. Degenerative changes are present particularly atL2-3. Impression: No suspicious findings are present. Please note that all CT scans at this facility use dose modulation,iterative reconstruction, and/or weight-based dosing when appropriate toreduce radiation dose to as low as reasonably achievable. Dictated by Jonas Jurado MD @ 06/21/2024 5:19:46 PM (Electronically Signed) us Blancai Rickiera DO CT Final Result * ESOPHAGOGASTRODUODENOSCOPY (06/15/2024 12:00 AM CDT) us Adei Shaqra DO GI PROCEDURE ORD Final Result * CT CHEST SCREENING LOW DOSE WO CONTRAST (05/10/2024 8:09 AM CDT) Anatomical Region Laterality Modality Computed Tomogra phy Impressions 05/10/2024 7:55 PM CDT Small pulmonary nodules. Lung-RADS Category 2: Benign appearance or behavior. Continue annual screening with low-dose chest CT in 12 months. Please note that all CT scans at this facility use dose modulation, iterative reconstruction and/or weight-based dosing when appropriate to reduce radiation dose to as low as reasonably achievable. Dictated by: Tom Gannon MD @05/10/2024 8:51:21 AM/ildefonso Neuroradiologist Narrative 05/10/2024 7:55 PM CDT For Patients: As a result of the Cures Act, medical imaging exams and procedure reports are released immediately into your electronic medical record. You may view this report before your referring provider. If you have questions, please contact your health care provider. CT CHEST SCREENING LOW-DOSE WITHOUT CONTRAST, 05/10/2024 INDICATION: Lung cancer screening. TECHNIQUE: Low-dose noncontrast CT images of the chest. Dose reduction techniques used. COMPARISON: None. FINDINGS: Calcified granuloma right lower lobe. No focal consolidation, pleural effusion, or pneumothorax. Solid 2 mm nodule right lower lobe (series 5, image 112). Solid 3 mm nodule along the left major fissure (series 5, image 65). Mild centrilobular and paraseptal emphysema predominantly in the upper lobes. Mild atelectasis left lung base. Heart size is normal. No pericardial effusion. Coronary artery atherosclerotic calcifications. No mediastinal or hilar lymphadenopathy. Limited images through the upper abdomen are unremarkable. Multilevel thoracic spondylosis. No aggressive osseous lesions. us Adei Shaqra DO CT Final Result * (ABNORMAL) LIPID PANEL W REFLEX MEASURED LDL (05/03/2024 8:36 AM CDT) CHOLESTEROL, TOTAL 230(H) <200 mg/dL [facility] HDL CHOLESTEROL 42 > OR = 40 mg/dL [facility] TRIGLYCERIDES 159(H) <150 mg/dL [facility] LDL-CHOLESTEROL 159(H) mg/dL (calc) [facility] Comment: Reference range: <100 Desirable range <100 mg/dL for primary prevention; <70 mg/dL for patients with CHD or diabetic patients with > or = 2 CHD risk factors. LDL-C is now calculated using the Cade calculation, which is a validated novel method providing better accuracy than the Friedewald equation in the estimation of LDL-C. Edward HORNER et al. SHAAN. 2013;310(19): 8664-7314 (http://education.[employer]/faq/ZYX099) CHOL/HDLC RATIO 5.5(H) <5.0 (calc) [facility] NON HDL CHOLESTEROL 188(H) <130 mg/dL (calc) [facility] Comment: For patients with diabetes plus 1 major ASCVD risk factor, treating to a non-HDL-C goal of <100 mg/dL (LDL-C of <70 mg/dL) is considered a therapeutic option. Blood BLOOD SPECIMEN / Unknown 05/03/2024 8:36 AM CDT 05/03/2024 8:37 AM CDT Adei Jobpartnersqra DO CHEMISTRY Final Result Performing Organization Address City/[facility] Co de Phone Number [facility] [address] [place] [address], [place] [phone] [facility] [address] [place] [address] * ANTI HCV (01/27/2023 10:36 AM RETAIL RECEIVING CLERK) Pathologist [facility] ANTIBODY Non-Reacti ve Non-React zainab 01/27/2023 5:07 PM RETAIL RECEIVING CLERK [facility] Comment:Please note, per www .CDC.gov: If a patient is known to be at high risk of HCV infection, or is symptomatic, and the physician's suspicion of HCV infection is high, HCV RNA testing is often employed and is of diagnostic value, even after an initial negative anti-HCV test result. Blood BLOOD SPECIMEN / Unknown Venipuncture / Unknown 01/27/2023 10:36 AM RETAIL RECEIVING CLERK 01/27/2023 10:37 AM RETAIL RECEIVING CLERK Adei Jobpartnersqra DO SEND OUTS Final Result [facility] [address] [place] [address], [place] * ANTI HIV 1/2 [75701.0] (01/27/2023 10:36 AM RETAIL RECEIVING CLERK) HIV-1/HIV-2 SCREEN Non-Reacti ve Non-Reacti ve 01/27/2023 4:33 PM RETAIL RECEIVING CLERK [facility] Comment:HIV-1 p24 and HIV-1/ HIV-2 Ab Not Detected. Blood BLOOD SPECIMEN / Unknown Venipuncture / Unknown 01/27/2023 10:36 AM RETAIL RECEIVING CLERK 01/27/2023 10:37 AM RETAIL RECEIVING CLERK us Anne Rueda DO SEND OUTS Final Result [facility] [address] [place] [address], from Last 3 Months or Most Recently Relevant to Health Maintenance Insurance [id number] Advance Directives * Full Code (Latest Code Status on File) Date Activated Date Inactivated Comments 02/21/2021 8:24 AM 02/21/2021 1:55 PM Question Answer Comments Code Status Discussion: Reviewed Preferences Care Teams Concrete Block Mason Relationship Specialty Start Date End Date [place] [address] PCP - General Family Practice 04/09/22
--- OUTSIDE RECORDS SUMMARY | 2024-08-09 14:32 | XMS_ITS | Encounter Summary ---
Author Organization [facility] Address [address] [place] [address] Care Team Providers Care Breakfast Bar Attendant Name Role Phone Unavailable Primary Care Provider Unavailabl e Reason for Visit * Reason Onset Date Comments Follow-up 2024 Encounter Details Date Type Department Care Team (Late st Contact Info) Description 2024 Clinical Communication Department of Family Medicine, [facility], in [place], [place] [address] [place] [address] Jay JayNancy Hernandez APRN, C.N.P., D.N.P. [address] [address] Follow-up Social History Tobacco Use Types Packs/Day Years Used Date Smoking Tobacco: Every Day Cigarettes Cigars Smokeless Tobacco: Never Alcohol Use Standard Drinks/Week Comments Yes 2 (1 standard drink = 0.6 oz pur e alcohol) occassional [facility] Utilities Answer Date Recorded In the past 12 months has e [employer], gas, oil, or water [employer] threatened to shut off services in your [...] your living situation today? I have a lei place to live 07/19/2024 Sex and Gender Information Value Date Recorded Sex Assigned at Male 07/19/2024 1:46 PM CDT Legal Sex Male 11:06 AM CDT Gender Identity Male 07/19/2024 1:46 PM CDT Sexual Orientation Straight 07/19/2024 1: 46 PM CDT documented as of this encounter Miscellaneous Notes * Telephone Encounter - Kathy Cohn R.N. - 2024 4:36 PM CDT Left message for patient to return call to clinic. Does the patient need to speak to nursing? yes Action needed: Relay message from Nancy Hernandez: sent meloxicam 15 mg once daily for 10 days for the intercostal pain. Please take with food. Do not combine any other NSAID such as Aleve, ibuprofen, Advil, aspirin while taking meloxicam. Thank you * Telephone Encounter - Kathy Cohn R.N. - 2024 4:34 PM CDT ----- Message from Nancy Pollock APRN, C.N.P., D.N.P. sent at 2024 3:23 PM CDT ----- Please inform patient I have sent meloxicam 15 mg once daily for 10 days for the intercostal pain. Please take with food. Do not combine any other NSAID such as a leave, ibuprofen, Advil, aspirin while taking meloxicam. Thank you documented in this encounter Plan of Treatment Not on file documented as of this encounter Visit Diagnoses Not on filedocumented in this encounter
== END 2024-08-09 14:29 | disposition home or self-care (01) ==
LOC: US 13:55
PROVIDERS: PCP Family Medicine; Visit Provider Internal Medicine
DX: J93.9 Pneumothorax, unspecified (principal); J90 Pleural effusion, not elsewhere classified; R07.81 Pleurodynia; M41.25 Other idiopathic scoliosis, thoracolumbar region
CPT/HCPCS: 76604

== ENCOUNTER 2024-09-09 18:47 | Emergency (ER) | payer BC, SELFPAY ==
--- OUTSIDE RECORDS SUMMARY | 2024-07-29 12:55 | XMS_ITS | Encounter Summary ---
Author Organization [facility] Address [address] [place] [address] Care Team Providers Care Surgery Attendant Name Role Phone Unavailable Primary Care Provider Unavailabl e Reason for Visit * Outpatient (Routine) - Closed Specialty Diagnoses / Procedures Referred By Melany cornejo Referred To Contact Diagnoses Curvature Spine Procedures DX Entire Spine Scoliosis 1 View DX Thoracolumbar Spine Scoliosis Anterior Posterior 1 View Nancy Pollock APRN, C.N.P., D.N.P. [address] [phone] Phone: tel: fax: [facility] Region Referral ID Status Reason Start Date Expiration Date Visits Re quested Visits Authorized [id number] Closed 2024 10/20/2025 1 1 Encounter Details Date Type Department Care Team (Late st Contact Info) Description 07/29/2024 12:55 PM CDT - 07/29/2024 11:59 PM CDT Hospital Encounter Department of Radiology in [place], [place] [address] [place] [phone] Nancy Pollock APRN, C.N.P., D.N.P. [address] [place] [phone] Curvature Spine Discharge Disposition: Home or Self Care Social History Tobacco Use Types Packs/Day Years Used Date Smoking Tobacco: Every Day Cigarettes Cigars Smokeless Tobacco: Never Alcohol Use Standard Drinks/Week Comments Yes 2 (1 standard drink = 0.6 oz pur e alcohol) occassional [facility] Utilities Answer Date Recorded In the [...] your living situation today? I have a [facility] place to live 07/19/2024 Sex and Gender [...] Procedure Name Priority Date/Time Associated Diagnosis Comments DX ENTIRE SPINE SCOLIOSIS 1 VIEW RAD - Routine (most inpatients and all outpatients) 07/29/2024 1:07 PM CDT Curvature Spine documented in this encounter Results * DX Entire Spine Scoliosis 1 View (07/29/2024 1:07 PM CDT) Anatomical Region Laterality Modality Spine, Musculoskeletal RST L OS, Neuroradiology ARZ LOS, Muskuloskeletal FLA LOS N/A Digital Radiography Impressions 07/29/2024 1:28 PM CDT Right thoracolumbar junction curve measures 22 degrees. Left mid to lower lumbar curve measures 20 degrees. No segmentation anomaly. Mild multilevel degenerative changes mid to lower lumbar spine. Moderate-sized left pleural effusion with dense consolidation or atelectasis at the left lung base. Mild linear atelectasis or scarring at the right base. Narrative 07/29/2024 1:28 PM CDT EXAM: DX ENTIRE SPINE SCOLIOSIS 1 VIEW Procedure Note Luis Parra M.D. - 07/29/2024 EXAM: DX ENTIRE SPINE SCOLIOSIS 1 VIEW IMPRESSION: Right thoracolumbar junction curve measures 22 degrees. Left mid to lowerlumbar curve measures 20 degrees. No segmentation anomaly. Mild multileveldegenerative changes mid to lower lumbar spine. Moderate-sized leftpleural effusion with dense consolidation or atelectasis at the left lung base. Mild linearatelectasis or scarring at the right base. Nancy Pollock APR N, C.N.P., D.N.P. IMG DIAGNOSTIC IMAGING PROCEDURES Final Result documented in this encounter Visit Diagnoses Diagnosis Curvature Spine documented in this encounter
--- OUTSIDE RECORDS SUMMARY | 2024-09-09 18:50 | XMS_ITS | Clinical Summary ---
Author Organization [facility] Address [address] [place] [address] Care Team Providers Care Application Spec Name Role Phone Anne Rueda DO Primary Care Provider Allergies No known active allergies Medications durable medical equipment (DME)Indications :Resorption atelectasis without respiratory distress syndrome (HC) Incentive spirometer 1 Each 06/24/19 25 Active omeprazole 20 mg Delayed-Release capsule 06/24/19 25 Active polyethylene glycoL 17 gram/scoop powderIndication s:Abdominal pain, epigastric,Chron ic constipation Mix 1 scoop (17 g) in liquid then take by mouth once daily. 1700 g 1 07/08/19 25 Active sennosides 8.6 mg tabletIndication s:Chronic constipation Take 1 Tablet (8.6 mg) by mouth two times daily. 180 Tablet 3 07/08/19 25 Active Additional Information Patient not taking.Reported on 08/08/2024 polyethylene glycol-electroly te 236-22.74-6.74 -5.86 gram suspensionIndica tions:Change in stool caliber Drink 2 liters (half the bottle) the day before the procedure and 2 liters (half the bottle) 6 hours prior to procedure. 4000 mL 07/08/19 25 Active Additional Information Patient not taking.Reported on 08/08/2024 famotidine 20 mg tabletIndication s:Gastroesophage al reflux disease, unspecified whether esophagitis present Take 1 Tablet (20 mg) by mouth two times daily. 60 Tablet 11 08/12/19 25 Active cyclobenzaprine (FLEXERIL) 10 mg tabletIndication s:Postprandial epigastric pain,Abdominal pain, LUQ (left upper quadrant) Take 1 Tablet (10 mg) by mouth at bedtime if needed for Muscle Spasm. 30 Tablet 09/02/19 25 Active cyclobenzaprine 10 mg tabletIndication s:Postprandial epigastric pain,Abdominal pain, LUQ (left upper quadrant) Take 1 Tablet (10 mg) by mouth at bedtime if needed for Muscle Spasm. 30 Tablet 06/22/19 25 025 Discontin ued(Reord er (E-cancel not sent)) Active Problems Problem Noted Date Diagnosed Date Prediabetes 03/17/2024 Mixed hyperlipidemia 03/17/2024 Tobacco dependence 06/25/2020 Routine adult health maintenance 08/24/2015 Overview (08/24/2015): Colonoscopy 08/2015 normal repeat in 10 years Urinary frequency 09/23/2013 Encounters Date Type Department Care Team Description 09/08/2024 9:20 AM CDT - 09/08/2024 11:59 PM CDT Hospital Encounter [address] [address] Salazar Ricardo MD Becken, Amy, PT Rib pain on left side; Idiopathic scoliosis of thoracolumbar region 09/08/2024 Travel 08/11/2024 9:00 AM CDT Office Visit [facility] [address] [place] [address] Edward Sandoval MD Follow Up (Small caliber stools, SIBO test results) 08/11/2024 Travel 08/09/2024 Telephone [facility] [address] [facility] [place] [address] Salazar Ricardo MD FYI 08/08/2024 7:50 AM CDT Office Visit [facility] [address] [place] [facility] [address] Salazar Ricardo MD Musculoskeletal Problem (Consultation for LEFT Rib pain. DOO 02/2024) 08/08/2024 Travel 07/14/2024 Orders Only [facility] [address] [place] [address] Anne Rueda DO 1 scan: (1-Ord) [facility] 07/13/2024 11:49 AM CDT - 07/13/2024 11:59 PM CDT Hospital Encounter Edward Sandoval MD 07/13/2024 Lab Requisition [facility] [phone] Edward Sandoval MD 07/13/2024 Orders Only [facility] [address] [facility] [address] [place] [address] Edward Sandoval MD <No scans attached> 07/13/2024 Surgery [facility] [address] [facility] [address] [place] [address] Edward Sandoval MD Colonoscopy 07/07/2024 7:40 AM CDT Office Visit [facility] [address] [place] [address] Anne Rueda, Abdominal Pain (Just received the SIBO testing to his house yesterday - plans to take today - stopped taking the omeprazole - used miralax 4 times a day for 30 doses and stopped - hasn't had a BM since Thursday - thinks that while using he maybe had BM every other day but very irregular stools ) 07/07/2024 Telephone [facility] [address] [place] [address] Edward Sandoval MD colonoscopy RX / Case request 07/07/2024 Travel 06/21/2024 2:30 PM CDT Ancillary Procedure [facility] [address] [place] [address] 06/21/2024 12:25 PM CDT Office Visit [facility] [address] [place] [address] Anne Rueda DO Abdominal Pain/problem (Feels like his digestion is all messed up since being on the prilosec /Feels like if he doesn't eat he does not have the rib pain ) 06/21/2024 Travel 06/16/2024 Lab Requisition [facility] [phone] Edward Sandoval MD 06/15/2024 6:30 AM CDT Procedure Only [facility] [address] [place] [address] Edward Sandoval MD from Last 3 Months Immunizations Immunization Administration Dates Next Due COVID-19 vaccine (Moderna 10 0mcg/0.5mL) PF, MDV 12/24/2020,03/13/2020,02/16/2020 HepA-HepB (Twinrix) 02/21/2008 Influenza, CCIIV3 (Age [...] on file Legal Sex Male 5:24 AM HAND NAILER Gender Identity Not on file Sexual Orientation Not on file Obstetrics History Last Filed Vital Signs Vital Sign Reading Time Taken Comments Blood Pressure 135/84 08/11/2024 9:03 AM CDT Pulse 79 08/11/2024 9:03 AM CDT Temperature 36 C (96.8 F) 02/21/2021 10:50 AM HAND NAILER Respiratory Rate 18 02/21/2021 11:30 AM HAND NAILER Oxygen Saturation 99% 08/11/2024 9:03 AM CDT Inhaled Oxygen Concentration - - Weight 84.9 kg (187 lb 3.2 oz) 08/11/2024 9:03 A M CDT Height 178 cm (5' 10.08) 05/03/2024 7:56 AM CDT Body Mass Index 26.8 05/03/2024 7:56 AM CDT Plan of Treatment Upcoming Encounters Date Type Department Care Team (Late st Contact Info) Description 10/04/2024 8:45 AM CDT Appointment [address] [address] Soumya Leong, PT [address] [place] [address] 10/11/2024 8:45 AM CDT Appointment [address] [address] Soumya Leong, PT [address] [place] [address] 10/18/2024 8:45 AM CDT Appointment [address] [address] Soumya Leong, PT [address] [place] [address] 10/25/2024 8:45 AM CDT Appointment [facility] [address] [place] [address] Soumya Leong, PT [address] [place] [address] Health Maintenance Due Date Last Done Comments Hepatitis B series for 19+ ( 2 of 3 - Hep B Twinrix 3-dose series) 03/20/2008 02/21/2008 Pneumococcal series for age 50+ (1 of 1 - PCV) 2012 Influenza Vaccine (#1) 2024 , 12/25/2022, 11/27/2021, Additional history exists BMI (ht and wt on same day) [...] Completed 06/18/2023, 01/27/2023 COVID-19 vaccine series Completed 01/03/20 24, 12/25/2022, 11/27/2021, Additional history exists Procedures Procedure Name Priority Date/Time Associated Diagnosis Comments COMP METABOLIC PANEL Routine 08/08/2024 9:04 AM CDT Rib pain on left side Pleural effusion on left C-REACTIVE PROTEIN Routine 08/08/2024 9:04 AM CDT Rib pain on left side Pleural effusion on left LAB TRACKING EVENT Routine 07/13/2024 1:15 PM CDT PATH TISSUE EXAM Routine 07/13/2024 1:13 PM CDT COLONOSCOPY DIAGNOSTIC [facility] 12:00 AM CDT Abnormal stool caliber AMB CONSULT TO GASTROENTEROLOGY [facility] 06/23/2024 8:13 PM CDT Postprandial epigastric pain Abdominal pain, LUQ (left upper quadrant) CT ABDOMEN PELVIS W [facility] 06/21/2024 1:38 PM CDT Postprandial epigastric pain [...] ANTI HIV 1/2 Routine 01/27/2023 10:36 AM HAND NAILER Screening for HIV (human immunodeficiency virus) ANTI HCV Routine 01/27/2023 10:36 AM HAND NAILER Need for hepatitis C screening test SURGICAL PROCEDURE (TYPE PROCEDURE DESCRIPTION BELOW) Change in stool caliber from Last 3 Months or Most Recently Relevant to Health Maintenance Results * C-REACTIVE PROTEIN (08/08/2024 9:04 AM CDT) C-REACTIVE PROTEIN 6.6 <8.0 mg/L [facility] Blood BLOOD SPECIMEN / Unknown 08/08/2024 9:04 AM CDT 08/08/2024 9:05 AM CDT Salazar Ricardo MD CHEMISTRY Final Res ult [employer] [facility] [address] [place] [address], [facility] [address] [place] [address] * (ABNORMAL) COMP METABOLIC PANEL (08/08/2024 9:04 AM CDT) GLUCOSE 101(H) 65 - 99 mg/dL [facility] Comment: Fasting reference interval For someone without known diabetes, a glucose value between 100 and 125 mg/dL is consistent with prediabetes and should be confirmed with a follow-up test. UREA NITROGEN (BUN) 17 7 - 25 mg/dL [facility] CREATININE 0.98 0.70 - 1.35 mg/dL [facility] EGFR 87 > OR = 60 mL/min/1. 73m2 [facility] BUN/CREATININE RATIO SEE NOTE: (calc) [facility] Comment: Not Reported: BUN and Creatinine are within reference range. SODIUM 139 135 - 146 mmol/L [facility] POTASSIUM 5.2 3.5 - 5.3 [...] Salazar Ricardo MD CHEMISTRY Final Res ult Performing Organization Address City/[facility]/ZIP Co de Phone Number [employer] [facility] [address] [place] [address], [facility] [address] [place] [address] * LAB TRACKING EVENT (07/13/2024 1:15 PM CDT) Only the most recent of2 resultswithin the time period is included. Other (Other) Client Collect / Unknown 07/13/2024 1:15 PM CDT 07/13/2024 6:12 PM CDT Edward Sandoval MD LAB BILL ONLY Final Res ult Performing Organization Address City/[facility]/ZIP Co de Phone Number [facility] [address] [address], * PATH TISSUE EXAM (07/13/2024 1:13 PM CDT) Only the most recent of2 resultswithin the time period is included. Case Report Pathology Report Case: [id number] Authorizing Provider: Edward Sandoval MD Collected: 07/13/2024 1313 Ordering Location: [facility] Received: 07/13/2024 1815 Pathologist: De Rueda MD Specimen: Rectal Biopsy 07/14/2024 4:00 PM CDT [facility] Final Diagnosis A) RECTUM, POLYPECTOMY: 1. Hyperplastic polyp 07/14/2024 4:00 PM CDT [facility] at 1600 CDT Clinical Information Mr. Castellanos is a 63 y.o. who presents with a change in stool caliber and hematochezia. Patient's last colonoscopy in August 2015. 07/14/2024 4:00 PM CDT [facility] Gross Description A) Received in formalin is a mancilla mucosal fragment measuring 2 mm in greatest dimension, which is entirely submitted in one cassette. It is labeled with the patient's name and designated rectal polyp. Jaye Jason 07/13/2024 6:42 PM 07/14/2024 4:00 PM CDT [facility] Microscopic Description The final diagnosis is based on microscopic examination of appropriate sections of all specimens. 07/14/2024 4:00 PM CDT [facility] Additional Information Interpreted at [facility] - [address] [facility] [address], [place] [address] 07/14/2024 4:00 PM CDT [facility] Other (Rectal Biopsy) 07/13/2024 1:13 PM CDT 07/13/2024 6:15 PM CDT us Edward Sandoval MD PATHOLOGY/CYTOLOGY Final Result [facility] [address] [place] [address], * COLONOSCOPY DIAGNOSTIC (07/13/2024 12:00 AM CDT) [...] a result of the Cures Act, medical imagingexams and procedure reports [...] MD @ 06/21/2024 5:19:46 PM (Electronically Signed) Anne Rueda DO CT Final Result * ESOPHAGOGASTRODUODENOSCOPY (06/15/2024 12:00 AM CDT) Anne Rueda DO GI PROCEDURE ORD Final [...] For Patients: As a result of the 21st Century Cures Act, medical imaging exams and [...] REFLEX MEASURED LDL (05/03/2024 8:36 AM CDT) Pathologist [facility] CHOLESTEROL, TOTAL 230(H) <200 mg/dL [facility] [...] factors. LDL-C is now calculated using the Edward-Staley calculation, which is a validated novel method providing better accuracy than the Friedewald equation in the estimation of LDL-C. Edward SS et al. SHAAN. 2013;310(19): 9933-7087 (http://education.KnowledgeTree/faq/CYS832) CHOL/HDLC RATIO 5.5(H) <5.0 (calc) [facility] NON HDL CHOLESTEROL 188(H) <130 mg/dL (calc) [facility] Comment: For patients with diabetes plus 1 major ASCVD risk factor, treating to a non-HDL-C goal of <100 mg/dL (LDL-C of <70 mg/dL) is considered a therapeutic option. Blood BLOOD SPECIMEN / Unknown 05/03/2024 8:36 AM CDT 05/03/2024 8:37 AM CDT Anne Carloswalker [employer] CHEMISTRY Final Result Performing Organization Address City/[facility]/ZIP Co de Phone Number [employer] DIAGNOSTICS [facility] [address] [place] [address], [place] [phone] [facility] [address] [place] [address] * ANTI HCV (01/27/2023 10:36 AM HAND NAILER) HEPATITIS C ANTIBODY Non-Reacti ve Non-React zainab 01/27/2023 5:07 PM HAND NAILER [facility] Comment:Please note, per www .CDC.gov: If a patient is known to be at high risk of HCV infection, or is symptomatic, and the physician's suspicion of HCV infection is high, HCV RNA testing is often employed and is of diagnostic value, even after an initial negative anti-HCV test result. Blood BLOOD SPECIMEN / Unknown Venipuncture / Unknown 01/27/2023 10:36 AM HAND NAILER 01/27/2023 10:37 AM HAND NAILER [employer]ICHOLE SEND OUTS Final Result Performing Organization Address [facility] Co de Phone Number [facility] [address] [place] [address], [place] * ANTI HIV 1/2 [74032.0] (01/27/2023 10:36 AM HAND NAILER) Pathologist [facility] HIV-1/HIV-2 SCREEN Non-Reacti ve Non-Reacti ve 01/27/2023 4:33 PM HAND NAILER [facility] Comment:HIV-1 p24 and HIV-1/ HIV-2 Ab Not Detected. Blood BLOOD SPECIMEN / Unknown Venipuncture / Unknown 01/27/2023 10:36 AM HAND NAILER 01/27/2023 10:37 AM HAND NAILER Anne Carloswalker DO SEND OUTS Final Result Performing Organization Address City/[facility]/ZIP Co de Phone Number [facility] [address] [place] [address], from Last 3 Months or Most Recently Relevant to Health Maintenance Insurance [facility] ADVANTAGE Advance Directives * Full Code (Latest Code Status on File) Date Activated Date Inactivated Comments 02/21/2021 8:24 AM 02/21/2021 1:55 PM Question Answer Comments Code Status Discussion: Reviewed Preferences Care Teams Application Spec Relationship Specialty Start Date End Date Anne Rueda DO [address] [place] [address] PCP - General Family Practice 04/09/22
--- OUTSIDE RECORDS SUMMARY | 2024-09-09 18:50 | XMS_ITS | Encounter Summary ---
Author Organization [facility] Address [address] [place] [address] Care Team Providers Care Equipment Superintendent Name Role Phone Unavailable Primary Care Provider Unavailabl e Encounter Details Date Type Department Care Team (Late st Contact Info) Description 2024 Results Follow-Up Department of Family Medicine, [facility], in [place], [place] [address] [place] [address] Jay JayNancy Hernandez APRN, C.N.P., D.N.P. [address] [place] [phone] Basic Metabolic Panel, CBC with Differential, Blood Social History Tobacco Use Types Packs/Day Years Used Date Smoking Tobacco: Every Day Cigarettes Cigars Smokeless Tobacco: Never Alcohol Use Standard Drinks/Week Comments Yes 2 (1 standard drink = 0.6 oz pur e alcohol) occassional [facility] Utilities Answer Date Recorded In the past 12 months has e [employer], gas, oil, or water [employer] threatened to shut off services in your [...] your living situation today? I have a [facility] place to live 07/19/2024 Sex and [...]
--- OUTSIDE RECORDS SUMMARY | 2024-09-09 18:50 | XMS_ITS | Clinical Summary ---
Author Organization [facility] Address [address] [place] [address] Care Team Providers Care Front Desk Lead Name Role Phone Unavailable Primary Care Provider Unavailabl e Source Comments Patient records contain information from all sites at [facility]. For routine questions regarding patient records, call [phone] during business hours, M-F 8:00 AM - 5:00 PM Central Time. Record requests for emergency care only can be directed to [phone] at any time.[facility] Allergies No known active allergies Medications omeprazole [...] CDT Hospital Encounter Department of Radiology in [place], [place] [address] [place] [address] Jay JayNancy Hernandez APRN, C.N.P., D.N.P. Curvature Spine Discharge Disposition: Home or Self Care 2024 Results Follow-Up Department of Family Medicine, [facility], in [place], [place] [address] [place] [address] Nancy Pollock APRN, C.N.P., D.N.P. Basic Metabolic Panel, CBC with Differential, Blood 2024 Clinical Communication Department of [facility], [facility], in [address] [phone] Nancy Pollock APRN, C.N.P., D.N.P. Follow-up 07/19/2024 2:47 PM CDT - 07/19/2024 11:59 PM CDT Hospital Encounter Department of Laboratory Medicine in [address] [place] [address] Nancy Pollock APRN, C.N.P., D.N.P. General Medical Examination Adult Discharge Disposition: Home or Self Care 07/19/2024 2:00 PM CDT Comprehensive Visit Department of [facility], [facility], in [address] [address] Nancy Pollock APRN, C.N.P., D.N.P. General Medical [...] = 0.6 oz pur e alcohol) occassional [facility] Utilities Answer Date Recorded In the [...] your living situation today? [facility] 07/19/2024 Sex and [...] 03/20/2008 02/21/2008 Depression Screening (Annual PHQ-2) 02/17/2024 Influenza Vaccine (#1) 2024 , 12/25/2022, 11/27/2021, Additional history exists Fasting Glucose for Diabetes Screening 2027 07/19/2024, 05/03/2024, 01/27/2023, Additional history exists Lipid (Cholesterol) Screening 01/28/2028 01/27/2023, 06/25/2020 DTaP,Tdap,and Td Vaccines (3 - Td or Tdap) 05/03/2034 05/03/2024, 07/05/2013 Colonoscopy 07/13/2034 07/13/2024 Colorectal Cancer Screening 07/13/2034 Zoster Vaccines Completed 06/18/2023, 01/27/2023 COVID-19 Vaccine Completed 01/03/2024, 10/2022, 11/27/2021, Additional history exists IPV Vaccines Aged [...] with Differential, Blood (07/19/2024 2:59 PM CDT) Pathologist [facility] [place] Hemoglobin 13.8 13.2 - 16.6 g/dL 07/19/2024 [...] D.N.P. LA B BLOOD ADD-ON Final Result [facility] [address] [place] [id number], [facility] OWAT [facility] in [place] [address] [place] [phone] * Basic Metabolic Panel (07/19/2024 2:59 PM [...] D.N.P. LA B BLOOD ADD-ON Final Result [facility] [address] [place] [address], [place] OWAT [facility] in [place] [address] [place] [address] from Last 3 Months Insurance [facility]
--- OUTSIDE RECORDS SUMMARY | 2024-09-09 18:50 | XMS_ITS | Encounter Summary ---
Author Organization [facility] Address [address] [place] [address] Care Team Providers Care Car Installations Supervisor Name Role Phone Unavailable Primary Care Provider Unavailabl e Reason for Visit * Reason Onset Date Comments Follow-up 2024 Encounter Details Date Type Department Care Team (Late st Contact Info) Description 2024 Clinical Communication Department of Family Medicine, [facility], in [place], [place] [address] [place] [address] Jay JayNancy Hernandez APRN, C.N.P., D.N.P. [address] [address] Follow-up Social History Tobacco Use Types Packs/Day Years Used Date Smoking Tobacco: Every Day Cigarettes Cigars Smokeless Tobacco: Never Alcohol Use Standard Drinks/Week Comments Yes 2 (1 standard drink = 0.6 oz pur e alcohol) occassional [facility] Utilities Answer Date Recorded In the past 12 months has e [employer], gas, oil, or water [employer] threatened to shut off services in your [...]
[2024-09-09 18:56] VITALS: BP 118/76; PULSE 125; RESP 19; TEMP 36.5; O2SAT 95; BMI 25.8
--- NOTE | 2024-09-09 19:10 | ED.SOB ---
HPI - SOB/Dyspnea General Chief Complaint: Shortness of Breath/Dyspnea <Ezra Wilkins MD - Last Filed: 09/09/24 19:12> Stated Complaint: Difficulty breathing <Ezra Wilkins MD - Last Filed: 09/09/24 19:12> Time Seen by Provider: 09/09/24 19:03 <Ezra Wilkins MD - Last Filed: 09/09/24 19:12> History of Present Illness HPI Narrative: Patient is a 64-year-old gentleman who has a history of pleural effusion. This has been drained apparently in the past. He actually saw me approximately a month ago for an outpatient thoracentesis but when we did the ultrasound there is really not any appreciable fluid. Patient states he is becoming increasingly short of breath. He has had no fevers no chills no night sweats no chest pain no orthopnea no PND no nausea no vomiting. He states that he has had no lower extremity edema. He states his pulse is fast and he is concerned that he has filling up with fluid again his thorax. <Ezra Wilkins MD - Last Filed: 09/09/24 19:12> Related Data Home Medications: Home Medications ?Medication ?Instructions ?Recorded ?Confirmed cyclobenzaprine 10 mg tablet 10 mg PO QPM 09/09/24 09/09/24 <Ezra Wilkins MD - Last Filed: 09/09/24 19:12> Allergies/Adverse Reactions: Allergies Allergy/AdvReac Type Severity Reaction Status Date / Time No Known Drug Allergies Allergy Verified 09/09/24 18:55 <Ezra Wilkins MD - Last Filed: 09/09/24 19:12> Review of Systems Status of ROS: Reports: 10 or more systems reviewed and unremarkable except as noted in History and below <Ezra Wilkins MD - Last Filed: 09/09/24 19:12> [facility] Social History: Social History Smoking Status: Former smoker Do you use any of these nicotine containing products: None How often do you have a drink containing alcohol: 2-3 times a week How often do you have six or more drinks on one occasion: Never AUDIT-C Alcohol total score: 3 Non-prescribed substance use: denies use service: No <Ezra Wilkins MD - Last Filed: 09/09/24 19:12> Exam Narrative: Exam Narrative: EXAM GENERAL: Patient appears comfortable and well. EYES: No scleral icterus. ENT: Tympanic membranes and oropharynx normal. THYROID: no thyroid nodules or thyromegaly. LYMPH: No supraclavicular or cervical lymphadenopathy. SKIN: Visible skin seen during exam normal or with benign process only. EXT: No dependent lower extremity pedal edema. HEART: Regular rate and rhythm with no murmurs, rubs, or gallops. LUNGS: Decreased breath sounds noted on the left hemithorax. ABD: Soft, non tender, non distended. PSYCH: Good eye contact, speech is not pressured. <Ezra Wilkins MD - Last Filed: 09/09/24 19:12> Const: Vital Signs, click to edit/add: Vital Signs - 24 hr 09/09/24 18:56 Temperature 97.7 F Pulse Rate [Pulse Oximeter] 125 H Respiratory Rate 19 Blood Pressure [Ri ght Upper Arm] 118/76 Pulse Oximetry 95 Oxygen Delivery Me thod Room Air <Ezra Wilkins MD - Last Filed: 09/09/24 19:12> Vital Signs, click to edit/add: Vital Signs - 24 hr 09/09/24 18:56 Temperature 97.7 F Pulse Rate [Pulse Oximeter] 125 H Respiratory Rate 19 Blood Pressure [Ri ght Upper Arm] 118/76 Pulse Oximetry 95 Oxygen Delivery Me thod Room Air <Elen Aviles MD - Last Filed: 09/09/24 22:24> Course Course ED Course: Patient seen and examined. Will start with a chest x-ray. D-dimer troponin EKG CBC comprehensive metabolic panel. <Ezra Wilkins MD - Last Filed: 09/09/24 19:12> Vital Signs Vital signs: Initial Vital Signs Temperature 97.7 F 09/09/24 18:56 Temperature Source Temporal Artery Scan 09/09/24 18:56 Pulse Rate 125 H 09/09/24 18:56 Respiratory Rate 19 09/09/24 18:56 Blood Pressure 118/76 09/09/24 18:56 Blood Pressure Mean 90 09/09/24 18:56 Pulse Oximetry 95 07/25/25 18:56 Oxygen Delivery Method Room Air 09/09/24 18:56 Vital Signs Temperature 97.7 F 09/09/24 18:56 Pulse Rate 125 H 09/09/24 18:56 Respiratory Rate 19 09/09/24 18:56 Blood Pressure 118/76 09/09/24 18:56 Pulse Oximetry 95 09/09/24 18:56 Oxygen Delivery Method Room Air 09/09/24 18:56 Temperature 97.7 F 09/09/24 18:56 Pulse Rate 125 H 09/09/24 18:56 Respiratory Rate 19 09/09/24 18:56 Blood Pressure 118/76 09/09/24 18:56 Pulse Oximetry 95 09/09/24 18:56 Oxygen Delivery Method Room Air 09/09/24 18:56 <Ezra Wilkins MD - Last Filed: 09/09/24 19:12> Initial Vital Signs Temperature 97.7 F 09/09/24 18:56 Temperature Source Temporal Artery Scan 09/09/24 18:56 Pulse Rate 125 H 09/09/24 18:56 Respiratory Rate 19 09/09/24 18:56 Blood Pressure 118/76 09/09/24 18:56 Blood Pressure Mean 90 09/09/24 18:56 Pulse Oximetry 95 09/09/24 18:56 Oxygen Delivery Method Room Air 09/09/24 18:56 Vital Signs Temperature 97.7 F 09/09/24 18:56 Pulse Rate 125 H 09/09/24 18:56 Respiratory Rate 19 09/09/24 18:56 Blood Pressure 118/76 09/09/24 18:56 Pulse Oximetry 95 09/09/24 18:56 Oxygen Delivery Method Room Air 09/09/24 18:56 Temperature 97.7 F 09/09/24 18:56 Pulse Rate 125 H 09/09/24 18:56 Respiratory Rate 19 09/09/24 18:56 Blood Pressure 118/76 09/09/24 18:56 Pulse Oximetry 95 09/09/24 18:56 Oxygen Delivery Method Room Air 09/09/24 18:56 <Elen Aviles MD - Last Filed: 09/09/24 22:24> MDM - SOB/Dyspnea MDM Narrative Medical decision making narrative: I assumed care from Dr. Ricardo. I personally reviewed and interpreted CT scan of the chest which demonstrates large left pleural effusion causing rightward mediastinal shift and downward displacement of the hemidiaphragm concerning for malignant or infected effusion. I discussed results with patient and family. Less likely infection given patient is afebrile, no leukocytosis, and patient reports having an effusion since May.. Given patient's significant effusion, tachycardia, lower oxygen saturations at 94% I do recommend admission to the hospital tonight and have General surgery perform ultrasound-guided thoracentesis in the morning. I discussed patient managed to a general surgeon Dr. Contreras who agrees with the plan. Unfortunately after discussion with patient patient does not want to stay in the hospital and would like to leave. Patient understands risk of leaving including worsening symptoms, shortness of breath, . Patient is agreeable to following up outpatient for thoracentesis. I did place an order for outpatient ultrasound-guided thoracentesis. Discussed with general surgeon Dr. Contreras who will follow up and call patient on Thursday to schedule outpatient procedure. Strict return precautions discussed. Patient and family understand agrees with plan. Patient discharged AMA. <Elen Aviles MD - Last Filed: 09/09/24 22:24> Lab Data Labs: Lab Results 09/09/24 Range/Units 19:23 WBC 9.45 (4.50-11.00) K/uL RBC 4.59 (4.30-5.90) m/uL Hgb 13.6 (13.5-17.5) gm/dL Hct 41.8 (37.0-53.0) % MCV 91 (80-100) fL MCH 30 (26-34) pg MCHC 33 (32-36) gm/dL RDW Coeff of David 13.0 (11.5-15.5) % Plt Count 324 (140-440) K/uL Neut % (Auto) 65.4 (42.0-72.0) % Lymph % (Auto) 19.9 L (20-44) % [place] % (Auto) 11.1 H (0.0-11.0) % Eos % (Auto) 2.9 (0.0-7.0) % Baso % (Auto) 0.5 (0.0-3.0) % Neut # (Auto) 6.18 (1.7-7.0) K/uL Lymph # (Auto) 1.90 (0.90-2.90) K/uL [place] # (Auto) 1.00 H (0.00-0.90) K/UL Eos # (Auto) 0.27 (0.00-0.50) K/uL Baso # (Auto) 0.05 (0.00-0.30) K/uL Abs Immat Gran (auto) 0.02 (0.00-0.30) K/uL Imm/Tot Granulo (auto) 0.2 % D-Dimer Quant (PE/DVT) 0.52 H (0.00-0.50) ug/ml Sodium 137 (135-149) mmol/L Potassium 4.3 (3.6-5.1) mmol/L Chloride 103 (96-114) mmol/L Carbon Dioxide 28 (20-32) mmol/L Anion Gap 6 L (7-15) mEq/L BUN 34 H (7-30) mg/dL Creatinine 1.7 H (0.5-1.5) mg/dL Estimated Creat Clear 47.99 Estimated GFR 45 ml/min Glucose 129 H (60-115) mg/dL Calcium 10.2 (8.4-10.6) mg/dL Total Bilirubin 0.3 (0.1-1.5) mg/dL AST 44 H (12-35) U/L ALT 58 H (4-50) U/L Alkaline Phosphatase 119 (40-150) U/L Troponin I < 0.01 (0.01-0.04) ng/mL Total Protein 7.1 (6.0-8.3) g/dL Albumin 4.1 (3.3-5.0) g/dL <Ezra Wilkins MD - Last Filed: 09/09/24 19:12> Lab Results 09/09/24 Range/Units 19:23 WBC 9.45 (4.50-11.00) K/uL RBC 4.59 (4.30-5.90) m/uL Hgb 13.6 (13.5-17.5) gm/dL Hct 41.8 (37.0-53.0) % MCV 91 (80-100) fL MCH 30 (26-34) pg MCHC 33 (32-36) gm/dL RDW Coeff of David 13.0 (11.5-15.5) % Plt Count 324 (140-440) K/uL Neut % (Auto) 65.4 (42.0-72.0) % Lymph % (Auto) 19.9 L (20-44) % [place] % (Auto) 11.1 H (0.0-11.0) % Eos % (Auto) 2.9 (0.0-7.0) % Baso % (Auto) 0.5 (0.0-3.0) % Neut # (Auto) 6.18 (1.7-7.0) K/uL Lymph # (Auto) 1.90 (0.90-2.90) K/uL [place] # (Auto) 1.00 H (0.00-0.90) K/UL Eos # (Auto) 0.27 (0.00-0.50) K/uL Baso # (Auto) 0.05 (0.00-0.30) K/uL Abs Immat Gran (auto) 0.02 (0.00-0.30) K/uL Imm/Tot Granulo (auto) 0.2 % D-Dimer Quant (PE/DVT) 0.52 H (0.00-0.50) ug/ml Sodium 137 (135-149) mmol/L Potassium 4.3 (3.6-5.1) mmol/L Chloride 103 (96-114) mmol/L Carbon Dioxide 28 (20-32) mmol/L Anion Gap 6 L (7-15) mEq/L BUN 34 H (7-30) mg/dL Creatinine 1.7 H (0.5-1.5) mg/dL Estimated Creat Clear 47.99 Estimated GFR 45 ml/min Glucose 129 H (60-115) mg/dL Calcium 10.2 (8.4-10.6) mg/dL Total Bilirubin 0.3 (0.1-1.5) mg/dL AST 44 H (12-35) U/L ALT 58 H (4-50) U/L Alkaline Phosphatase 119 (40-150) U/L Troponin I < 0.01 (0.01-0.04) ng/mL Total Protein 7.1 (6.0-8.3) g/dL Albumin 4.1 (3.3-5.0) g/dL <Elen G Aviles, MD - Last Filed: 09/09/24 22:24> Discharge Plan Discharge Clinical Impression: Pleural effusion, Shortness of breath <Ezra Wilkins MD - Last Filed: 09/09/24 19:12> Patient Disposition: Left Against Medical Advice <Ezra Wilkins MD - Last Filed: 09/09/24 19:12> Condition: Unchanged <Ezra Wilkins MD - Last Filed: 09/09/24 19:12> Additional Instructions: We recommend you stay in the hospital this evening to get a procedure in the morning. Please follow-up in the General surgery Clinic for ultrasound-guided drainage. The clinic should call you on Thursday to schedule an appointment. If you do not hear from them please call [phone] region appointment. Please return to the emergency department if you develop any worsening symptoms. <Ezra Wilkins MD - Last Filed: 09/09/24 19:12> Prescriptions: No Action cyclobenzaprine 10 mg tablet 10 mg PO QPM <Ezra Wilkins MD - Last Filed: 09/09/24 19:12> Follow Up/Referrals: Jonas Malone MD [Primary Care Provider, Family Practice] <Ezra Wilkins MD - Last Filed: 09/09/24 19:12> Stand Alone Forms: MyHealth Info Instructions <Ezra Wilkins MD - Last Filed: 09/09/24 19:12>
--- NOTE | 2024-09-09 19:12 | CRLHL7_ITS ---
For Patients: As a result of the Century Cures Act, medical imaging exams and procedure reports are released immediately into your electronic medical record. You may view this report before your referring provider. If you have questions, please contact your health care provider. INDICATION: Shortness of breath. TECHNIQUE: Chest 2 views. COMPARISON: None. FINDINGS: Near complete opacification of the left hemithorax, a component of which is likely a large pleural effusion. The right lung is clear. No pneumothorax. The visualized portion of the cardiomediastinal silhouette is unremarkable. The left heart border is obscured. The osseous structures are unremarkable for age. IMPRESSION: Near complete opacification of the left hemithorax, a component of which is likely a large pleural effusion. Recommend CT for further evaluation and to exclude an underlying mass. Dictated by Eric Mcrae MD @ 09/09/2024 8:00:16 PM (Electronically Signed)
[2024-09-09 19:34] LABS: Hematocrit* 41.8 % (37.0-53.0); Hemoglobin* 13.6 gm/dL (13.5-17.5); Immature Granulocytes Abs Auto 0.02 K/uL (0.00-0.30); Immature Granulocytes Pct Auto 0.2 %; Mean Corpuscular HGB Conc 33 gm/dL (32-36); Mean Corpuscular Hemoglobin 30 pg (26-34); Mean Corpuscular Volume 91 fL (80-100); RDW Coefficient of Variation % 13.0 % (11.5-15.5); Red Blood Count* 4.59 m/uL (4.30-5.90); White Blood Count* 9.45 K/uL (4.50-11.00)
[2024-09-09 19:36] LABS: Lymphocytes Absolute Auto 1.90 K/uL (0.90-2.90); Slide Review Reflex No
--- NOTE | 2024-09-09 19:39 | CRLHL7_ITS ---
For Patients: As a result of the Century Cures Act, medical imaging exams and procedure reports are released immediately into your electronic medical record. You may view this report before your referring provider. If you have questions, please contact your health care provider. INDICATIONS: Pleural effusion. TECHNIQUE: CT chest was acquired with 95 cc of Isovue 370 IV contrast. COMPARISON: Chest radiograph 09/09/2024. FINDINGS: Large left pleural effusion causing rightward shift of the mediastinal structures and inferior displacement of the left hemidiaphragm. Equivocal mild pleural enhancement. No well-defined pleural nodularity. No right pleural effusion or pericardial effusion. No pathologic lymphadenopathy. Thoracic aorta and main pulmonary arteries are normal in caliber. Heart size is within normal limits. Mild coronary artery calcifications. Soft tissues of the thoracic wall are unremarkable. No pneumothorax. Lobulated secretions in the left mainstem bronchus. Central airways are otherwise patent. Complete compressive atelectasis of the left lower lobe and near complete atelectasis of the left upper lobe. [id number] emphysema. Calcified granuloma in the right lower lobe. No suspicious nodule or acute airspace disease in the right lung. Visualized upper abdomen is unremarkable. No acute or suspicious osseous abnormality. IMPRESSION: 1. Large left pleural effusion causing rightward mediastinal shift and downward displacement of the hemidiaphragm, concerning for malignant or infected effusion. 2. Marked left lung atelectasis may obscure an underlying malignancy. 3. No pathologic lymphadenopathy in the chest. 4. [id number] emphysema. Dictated by Pedro Luis Dang MD @ 09/09/2024 8:40:48 PM Please note that all CT scans at this facility use dose modulation, iterative reconstruction, and/or weight-based dosing when appropriate to reduce radiation dose to as low as reasonably achievable. Dictated by: Pedro Luis Dang MD @ 09/09/2024 20:41:12 (Electronically Signed)
[2024-09-09 19:48] LABS: Albumin* 4.1 g/dL (3.3-5.0); Chloride* 103 mmol/L (96-114); Potassium* 4.3 mmol/L (3.6-5.1); Sodium* 137 mmol/L (135-149)
[2024-09-09 19:50] LABS: Alanine Aminotransferase* 58 U/L (4-50); Anion Gap 6 mEq/L (7-15); Aspartate Amino Transferase* 44 U/L (12-35); Bilirubin Total* 0.3 mg/dL (0.1-1.5); Blood Urea Nitrogen* 34 mg/dL (7-30); Carbon Dioxide* 28 mmol/L (20-32); Creatinine* 1.7 mg/dL (0.5-1.5); Est. Creatinine Clearance* 47.99; Estimated Glomerular Filt Rate 45 ml/min; Total Protein* 7.1 g/dL (6.0-8.3)
[2024-09-09 19:51] LABS: Alkaline Phosphatase* 119 U/L (40-150); Calcium* 10.2 mg/dL (8.4-10.6); Glucose* 129 mg/dL (60-115)
[2024-09-09 19:54] LABS: D Dimer Quantitative* 0.52 ug/ml (0.00-0.50)
[2024-09-09 22:28] VITALS: BP 128/69; PULSE 104; RESP 22; TEMP 36.7
== END 2024-09-09 22:29 | disposition left against medical advice (07) ==
PROVIDERS: Emergency Provider Internal Medicine; PCP Family Medicine
DX: R06.02 Shortness of breath (principal); J90 Pleural effusion, not elsewhere classified
CPT/HCPCS: 36415; 71046; 71260; 80053; 84484; 85025; 85379; 99285; Q9967

== ENCOUNTER 2024-09-13 13:43 | Outpatient (CLI) | payer BC, SELFPAY ==
[2024-09-13 13:46] VITALS: BP 129/91; PULSE 112; RESP 18; TEMP 36.5; O2SAT 95
--- NOTE | 2024-09-13 14:03 | PM.GSCN ---
History of Present Illness Consult details Date Seen: 09/13/24 Consult date: 09/13/24 Narrative: Patient presents for evaluation of thoracentesis today. This started as left rib pain in February. It initially was a sharp intermittent pain, that has now become a constant ache. In May he started to also noticed shortness of breath at baseline. On chart review an x-ray image performed 07/29/2024 noted a moderate left-sided pleural effusion with dense consolidation of the left lung base. He was referred for thoracentesis. He was evaluated by my colleague Dr. Wilkins, with no drainable fluid collection identified on ultrasound imaging. Since then he has had increasing shortness of breath. No fevers or chills. Some chest pain on the left side with deep inspiration. No night sweats. No lower extremity edema. He has had about a 15 lb weight loss over this last year. A recent colonoscopy was performed 07/13/2024 and showed a hyperplastic polyp. He is not on any blood thinners. Patient is a nonsmoker. Patient has never had a thoracentesis before. Review of Systems Status of ROS: Reports: 10 or more systems reviewed and unremarkable except as noted in History and below [facility] Social History Smoking Status: Former smoker Do you use any of these nicotine containing products: None How often do you have a drink containing alcohol: 2-3 times a week How often do you have six or more drinks on one occasion: Never AUDIT-C Alcohol total score: 3 Non-prescribed substance use: denies use service: No Meds Home Medications and Allergies Home Medications ?Medication ?Instructions ?Recorded ?Confirmed ?Type cyclobenzaprine 10 mg tablet 10 mg PO QPM 09/09/24 09/09/24 History Allergies Allergy/AdvReac Type Severity Reaction Status Date / Time No Known Drug Allergies Allergy Verified 09/09/24 18:55 Exam Narrative: Exam Narrative: General: Alert and oriented, nontoxic Respiratory: Maintained on room air, no breath sounds on the left. Breath sounds present on the right. CV: Regular rhythm and rate Results Labs Labs: Labs reviewed from 09/09/2024. No evidence of leukocytosis. Creatinine elevated at 1.[address] scan - chest: report reviewed and image reviewed General Surgery Procedures Thoracentesis Time Out Performed: Yes Imaging guidance used ?: Yes Indication: Pleural effusion Procedure: diagnostic thoracentesis Location: left Local anesthetic used: lidocaine Amount of anesthesia used (mL): 10 Bedside ultrasound used: yes, fluid confirmed and location marked Preparation: sterile prep and drape and 11 blade used to make radha in skin Amount of fluid obtained (mL): 2,500 Fluid: clear Post Procedure Exam: awake, alert, normal BP, normal HR and normal SpO2 Patient Tolerated Procedure: well and no complications Complications: none Progress Note:A&P Assessment and plan (1) Pleural effusion: Status: Acute Assessment and Plan: Patient presents with a left-sided pleural effusion of unknown etiology. CT imaging of the chest was performed 09/09/2024 which demonstrated a large left pleural effusion causing rightward mediastinal shift and downward displacement of the hemidiaphragm. It was recommended that patient have an urgent thoracentesis performed, but he declined and elected to have one scheduled as an outpatient. Risks and benefits of the procedure were discussed at length the patient. All questions and concerns were addressed. Patient with stable vital signs and maintained on room air throughout procedure. Tolerated well without complication. 2500 mL of clear straw fluid removed. This was sent to pathology. Postprocedure chest x-ray was performed. Radiology read is pending but no evidence of pneumothorax. The previous rightward shift is no longer apparent but patient still has evidence of a large effusion. Recommend evaluation and possible repeat procedure on 09/15. Plan Patient is scheduled for repeat evaluation and possible left thoracentesis on .
[2024-09-13 14:20] VITALS: BP 104/77; PULSE 107; RESP 18; O2SAT 97
[2024-09-13 14:30] VITALS: BP 116/75; PULSE 98; RESP 18; O2SAT 95
--- NOTE | 2024-09-13 14:39 | CRLHL7_ITS ---
For Patients: As a result of the Century Cures Act, medical imaging exams and procedure reports are released immediately into your electronic medical record. You may view this report before your referring provider. If you have questions, please contact your health care provider. Indication: Status post thoracentesis Technique: Chest 1 view Comparison: Chest x-ray 09/09/2024 Findings/Impression: Cardiovascular and mediastinum: Heart size and vasculature are normal in caliber and appearance. Lungs and pleural space: Large left pleural effusion with consolidation in the left mid to lower lung. Size of the pleural effusion is slightly decreased compared to the study of 4 days prior. No definite pneumothorax status post thoracentesis. Bones and soft tissues: No acute findings. Dictated by James Acosta MD @ 09/13/2024 3:40:56 PM (Electronically Signed)
[2024-09-13 14:40] VITALS: BP 125/82; PULSE 97; RESP 18; O2SAT 97
[2024-09-13 16:03] LABS: BF Clarity* Slightly Cloudy; BF Total Volume* 2500; Mononuclear WBC Body Fluid* 95 %; Polynuclear WBC Body Fluid* 5 %; RBC, Body Fluid* 2000 Cells/uL; WBC, Body Fluid* 1006 Cells/uL
[2024-09-13 16:28] LABS: Albumin Body Fluid* 2.8 gm/dL; Amylase Body Fluid* 76 U/L; Body Fluid Total Protein* 4.7 gm/dL; Cholesterol Body Fluid* 89 mg/dL; Glucose Body Fluid* 29 mg/dL; LDH Body Fluid* 820 U/L
== END 2024-09-13 14:56 | disposition home or self-care (01) ==
LOC: US 13:43
PROVIDERS: PCP Family Medicine; Visit Provider Surgery
DX: J93.9 Pneumothorax, unspecified (principal); J90 Pleural effusion, not elsewhere classified
CPT/HCPCS: 32555; 71045; 82042; 82150; 82945; 83615; 84157; 84311; 87015; 87070; 87075; 87102; 87116; 87205; 87206; 88112; 89051

== ENCOUNTER 2024-09-15 11:10 | Outpatient (CLI) | payer BC, SELFPAY ==
[2024-09-15] VITALS (8 sets, daily range): BP systolic 108–130; BP diastolic 71–84; PULSE 84–103; RESP 16; O2SAT 96–97
--- NOTE | 2024-09-15 11:51 | CRLHL7_ITS ---
For Patients: As a result of the Century Cures Act, medical imaging exams and procedure reports are released immediately into your electronic medical record. You may view this report before your referring provider. If you have questions, please contact your health care provider. INDICATION: : post thoracentesis COMPARISON: Chest radiograph on September 13, 2024 TECHNIQUE: One view(s) of the chest FINDINGS/IMPRESSION: Significant improvement in the previously visualized large left-sided pleural effusion, now with small pleural effusion at the left lung base. There is a small left-sided pneumothorax with air gap measuring 1.2 centimeters along the lateral aspect of the left lower lung zone. The cardiomediastinal silhouette is unremarkable. No displaced fractures. Dictated by Jacques Gannon MD @ 09/15/2024 12:18:15 PM (Electronically Signed)
--- NOTE | 2024-09-15 11:53 | PM.PROC ---
Procedure Note Date Seen: 09/15/24 Will [facility] bill your pro fee for this procedure?: Yes Pre-op diagnosis: Left pleural effusion Post-op diagnosis: same Procedure: Ultrasound-guided Thoracentesis, left Procedure Description: After discussion of the risks and benefits the patient was placed in a seated position leaning over a table. Ultrasound guidance was used to identify the effusion. Once this was done the site was marked. The area was prepped and draped in the usual sterile fashion. Local anesthetic was used to anesthetize the skin and subcutaneous tissue down to the rib. Once the rib was encountered, the needle was advanced over the top of the rib into the pleural space. This was confirmed by the aspiration of dark blood tinged serous fluid. A skin radha was made with an 11 blade. The thoracentesis catheter was advanced into the pleural cavity while aspirating. Once the pleural fluid was aspirated confirming entrance into the chest cavity, the needle was removed and the sheath advanced. 1800 mL of fluid were then aspirated. At the end of the procedure, the patient had some mild coughing. The ultrasound was used to confirm successful aspiration evidence by no further remaining fluid. The catheter was then removed, and an occlusive dressing was placed over the skin site. Patient tolerated the procedure well. Estimated blood loss 1 mL Postprocedure chest x-ray revealed no pneumothorax. A postprocedure CBC was obtained due to the bloody nature of the fluid. This was stable at 14.7 Anesthesia: local Surgeon: Rosy Kim MD Estimated blood loss (mL): 1 Pathology: none sent Condition: stable Disposition: same day
[2024-09-15 12:09] LABS: Hematocrit 44.8 % (37.0-53.0); Hemoglobin* 14.7 gm/dL (13.5-17.5); Immature Granulocytes Abs Auto 0.02 K/uL (0.00-0.30); Immature Granulocytes Pct Auto 0.2 %; Mean Corpuscular HGB Conc 33 gm/dL (32-36); Mean Corpuscular Hemoglobin 30 pg (26-34); Mean Corpuscular Volume 91 fL (80-100); RDW Coefficient of Variation % 13.0 % (11.5-15.5); Red Blood Count 4.90 m/uL (4.30-5.90); White Blood Count* 9.74 K/uL (4.50-11.00)
[2024-09-15 12:12] LABS: Lymphocytes Absolute Auto 1.50 K/uL (0.90-2.90); Slide Review Reflex No
== END 2024-09-15 12:25 | disposition home or self-care (01) ==
PROVIDERS: PCP Family Medicine; Visit Provider Surgery
DX: J93.9 Pneumothorax, unspecified (principal); J90 Pleural effusion, not elsewhere classified
CPT/HCPCS: 32555; 36415; 71045; 85025

== ENCOUNTER 2024-09-15 15:02 | Outpatient (CLI) | payer BC, SELFPAY ==
--- NOTE | 2024-09-15 15:00 | CRLHL7_ITS ---
For Patients: As a result of the Century Cures Act, medical imaging exams and procedure reports are released immediately into your electronic medical record. You may view this report before your referring provider. If you have questions, please contact your health care provider. INDICATION: Pneumothorax. TECHNIQUE: Chest 2 views. COMPARISON: None. FINDINGS: Cardiovascular and mediastinum: Cardiomediastinal silhouette is within normal limits. Lungs and pleural spaces: A stable small left-sided pleural effusion. Stable left-sided pneumothorax measuring approximately 13 millimeters at the left lower lung zone. Left lower lung zone opacities likely atelectasis. Bones and soft tissues: No significant findings. IMPRESSION: Stable left pleural effusion and left-sided pneumothorax. Dictated by Aki Aguilar MD @ 09/15/2024 3:53:13 PM (Electronically Signed)
== END 2024-09-15 15:03 | disposition home or self-care (01) ==
LOC: RAD 15:02
PROVIDERS: PCP Family Medicine; Visit Provider Surgery
DX: J93.9 Pneumothorax, unspecified (principal); J90 Pleural effusion, not elsewhere classified
CPT/HCPCS: 32555; 36415; 71045; 71046; 85025

== ENCOUNTER 2024-09-30 09:50 | Outpatient (CLI) | payer BC, SELFPAY ==
--- NOTE | 2024-09-30 10:36 | PM.GSPN ---
Subjective Subjective Date Seen: 09/30/24 Interval history: Patient reports increasing shortness of breath and elevated heart rate with exercise. He comes here today for thoracentesis. He is scheduled for a pleural biopsy by Interventional Radiology on Thursday. I did speak with the patient's oncologist earlier this week, who recommended that any fluid that is removed be sent for cytology. Exam Narrative: Exam Narrative: General: Alert and oriented, no acute distress Respiratory: Equal breath rise bilaterally, no tachypnea. Decreased breath sounds on the left. Labs/Imaging Imaging Imaging: Ultrasound of the left side with complex pleural effusion present, presence of septations and some thicker fluid. Progress Note:A&P Assessment and plan (1) Pleural effusion, left: Status: Acute Assessment and Plan: Patient presents for evaluation of his left pleural effusion. This is secondary to metastatic adenocarcinoma. On ultrasound evaluation today there is a moderate amount of fluid, that appears complex with multiple septations. I do not think this is amendable to drainage in clinic today. Patient is being evaluated by Interventional Radiology on Thursday for a biopsy, recommend they perform fluid removal at that time as well. This was communicated with his oncologist. Patient has had 2 thoracentesis in the past. The last one was performed on 09/15/2024. The character of the fluid during that procedure was very dark sanguinous. The presence of septations within the pleural space today could represent a resolving hematoma. Certainly it is reasonable that patient has recurrence of his pleural effusion given his cancer diagnosis. Low concern for infection today with patient afebrile and nontoxic. Plan No thoracentesis procedure performed today. Patient will be seen by Interventional Radiology on Thursday.
== END 2024-09-30 10:15 | disposition home or self-care (01) ==
PROVIDERS: PCP Family Medicine; Visit Provider Surgery
DX: J90 Pleural effusion, not elsewhere classified (principal)
CPT/HCPCS: 76604

== ENCOUNTER 2024-10-30 05:54 | Outpatient (CLI) | payer BC, SELFPAY | END 2024-10-30 05:55 | disposition home or self-care (01) | LOC: AMB 11-01 09:02 | PROVIDERS: PCP Family Medicine; Visit Provider Emergency Medicine | DX: R06.09 Other forms of dyspnea (principal) | CPT/HCPCS: A0425; A0427 ==